=== PATIENT | male | born 1955 | race Two or more races ===

== ENCOUNTER 2017-06-16 19:52 | Emergency (ER) | payer OTHER ==
[~2017-06-16] VITALS: Ht 167.6 cm; Wt 79.4 kg
--- NOTE | 2017-06-16 20:05 | NUR ---
PT BIB AMBULANCE FOLLOWING FALL FROM WHEELCHAIR. PT C/O BACK PAIN AND FOREHEAD PAIN R/T FALL. NO TRAUMA OR BRUISING NOTED. PT IS A&O. DIAPER CHANGED AND PT POSITIONED FOR COMFORT. KINYARWANDA SPEAKING.
--- NOTE | 2017-06-16 20:11 | NUR ---
FELIZ ORTEGA AT BEDSIDE FOR MSE.
[2017-06-16] MEDS ORDERED: OXYCODONE/APAP 5-325 MG TABLET ONE (20:22)
--- NOTE | 2017-06-16 20:27 | NUR ---
Pt being taken out of room by food technology teacher for CT via gurney. VSS. No distress noted.
[2017-06-16] MEDS ORDERED: OXYCODONE/APAP 5-325 MG TABLET PO ONE (20:30)
--- NOTE | 2017-06-16 20:58 | NUR ---
PT back to ER from CT.
--- NOTE | 2017-06-16 21:03 | NUR ---
LAB AT PT BEDSIDE FOR BLOOD DRAW.
[2017-06-16 21:16] LABS: BASOPHILS % (AUTO) 0.4 % (0.0-2.0); EOSINOPHILS # (AUTO) 0.2 K/uL (0.0-0.7); EOSINOPHILS % (AUTO) 2.8 % (0.0-7.0); HEMOGLOBIN 11.9 g/dL (12.5-16.3); LYMPHOCYTES # (AUTO) 2.9 K/uL (20.0-40.0); LYMPHOCYTES % (AUTO) 42.4 % (20.5-51.5); MEAN CORPUSCULAR HEMOGLOBIN 33.3 uug (23.8-33.4); MEAN CORPUSCULAR HGB CONC 34 g/dL (32.5-36.3); MEAN CORPUSCULAR VOLUME 97.9 fL (73.0-96.2); MONOCYTES # (AUTO) 0.6 K/uL (2.0-10.0); MONOCYTES % (AUTO) 8.2 % (0.0-11.0); NEUTROPHILS # (AUTO) 3.2 K/uL (1.8-8.9); NEUTROPHILS % (AUTO) 46.2 % (38.5-71.5); PLATELET COUNT (AUTO) 133 K/uL (152-348); RED BLOOD CELL COUNT(AUTO) 3.57 MIL/uL (4.06-5.63); WHITE BLOOD COUNT (AUTO) 6.9 K/uL (3.6-10.2)
[2017-06-16 21:26] LABS: CARBON DIOXIDE 32 mmol/L (21-32); CHLORIDE 106 mmol/L (98-107); CREATININE 0.9 mg/dL (0.6-1.3); GLUCOSE 93 mg/dL (74-106); POTASSIUM 3.8 mmol/L (3.5-5.1); UREA NITROGEN, BLOOD 24 mg/dL (7-18)
[2017-06-16 21:32] LABS: ALANINE AMINOTRANSFERASE 18 U/L (16-63); ALKALINE PHOSPHATASE 72 U/L (50-136); ASPARTATE AMINOTRANSFERASE 12 U/L (15-37); BILIRUBIN,TOTAL 0.2 mg/dL (0.2-1.0); TOTAL PROTEIN, SERUM 7.5 g/dL (6.4-8.2); VALPROIC ACID 19 ug/mL (50-100)
--- NOTE | 2017-06-16 21:51 | NUR ---
PT RESTING IN A POSITION OF COMFORT. NO DISTRESS NOTED AT THIS TIME.
--- NOTE | 2017-06-16 22:48 | NUR ---
[facility] called regarding pt transfer. BLS requested. Confirmation # [id number] ETA [phone] [facility] called and updated on status.
--- NOTE | 2017-06-17 00:15 | NUR ---
Patient discharged to home in stable conditon via [facility] for transport. Written and verbal after care instructions given. Patient verbalizes understanding of instructions. Pt took all personal belongings.
[2017-06-17 00:17] VITALS: BP 102/68
== END 2017-06-17 00:20 | disposition home or self-care (01) ==
LOC: EDBD 19:52 → ER 19:52
DX: S00.03XA Contusion of scalp, initial encounter (principal); G89.29 Other chronic pain; M54.9 Dorsalgia, unspecified; E78.00 Pure hypercholesterolemia, unspecified; W05.0XXA Fall from non-moving wheelchair, initial encounter; Y93.89 Activity, other specified; Y92.89 Other specified places as the place of occurrence of the external cause; Y99.8 Other external cause status
CPT/HCPCS: 36415; 70030-TC; 70450; 72131; 80164; 85025; 85610; A4663

== ENCOUNTER 2017-08-01 12:04 | Emergency (ER) | payer OTHER ==
[~2017-08-01] VITALS: Ht 167.6 cm; Wt 77.1 kg
[2017-08-01] MEDS ORDERED: IBUP-1955 PO (12:31)
[2017-08-01] MEDS ORDERED: OXYC-162 PO (12:31)
[2017-08-01] MEDS ORDERED: ATOR10TA PO (12:31)
[2017-08-01] MEDS ORDERED: ACET325T80 PO (12:31)
[2017-08-01] MEDS ORDERED: RISP2TAB23 PO (12:31)
[2017-08-01] MEDS ORDERED: FOLI1TAB16 PO (12:31)
[2017-08-01] MEDS ORDERED: ASPI-605 PO (12:31)
[2017-08-01] MEDS ORDERED: DIVA125C5 PO (12:31)
[2017-08-01] MEDS ORDERED: DOCU250C14 PO (12:31)
[2017-08-01] MEDS ORDERED: TAMS0.4C34 PO (12:31)
[2017-08-01] MEDS ORDERED: BETH25TA PO (12:31)
--- NOTE | 2017-08-01 12:54 | NUR ---
DR CHURCHILL AT THE BEDSIDE FOR MSE.
--- NOTE | 2017-08-01 13:14 | NUR ---
Pt out of ER for CT.
[2017-08-01] MEDS ORDERED: IBUPROFEN 600 MG TABLET PO ONE (13:45)
--- NOTE | 2017-08-01 13:54 | NUR ---
NOTIFIED [facility] REGARDING PT GOING BACK TO FACILITY. CALLED [facility] FOR TX, ETA [phone]. PT IS RESTING IN BED WATCHING TV.
[2017-08-01] MEDS ORDERED: IBUPROFEN 600 MG TABLET ONE (14:12)
--- NOTE | 2017-08-01 15:48 | NUR ---
Patient discharged to SNF in stable conditon. Written and verbal after care instructions given to EMT [facility]. Patient verbalizes understanding of instructions.
--- NOTE | 2017-08-01 15:51 | NUR ---
Patient discharged in stable condition back to [facility] facility via [facility]. SBAR report given to transport EMT.
[2017-08-01 15:53] VITALS: BP 108/69
[2017-09-04] MEDS ORDERED: GABA-534 PO (08:39)
[2017-10-08] MEDS ORDERED: ACET325T80 PO (21:28)
[2017-10-08] MEDS ORDERED: OXYC-117 PO (21:28)
== END 2017-08-01 15:54 | disposition home or self-care (01) ==
LOC: ER 12:04
DX: R51 Headache (principal); E78.00 Pure hypercholesterolemia, unspecified; Z79.1 Long term (current) use of non-steroidal anti-inflammatories (NSAID); Z79.82 Long term (current) use of aspirin; Z79.899 Other long term (current) drug therapy
CPT/HCPCS: 70450; A4663

== ENCOUNTER 2017-08-29 09:49 | Emergency (ER) | payer OTHER ==
[~2017-08-29] VITALS: Ht 172.7 cm; Wt 74.8 kg
[~2017-08-29 09:49] MED LIST: ACET325T80 PO; ASPI-605 PO; ATOR10TA PO; BETH25TA PO; DIVA125C5 PO; DOCU250C14 PO; FOLI1TAB16 PO; IBUP-1955 PO; OXYC-162 PO; RISP2TAB23 PO; TAMS0.4C34 PO
--- NOTE | 2017-08-29 10:01 | NUR ---
patient was seen by dr garrido for fall and headache. patient is awake, alert and oriented.
[2017-08-29] MEDS ORDERED: ACETAMINOPHEN 325 MG TABLET PO ONE (10:30)
[2017-08-29] MEDS ORDERED: ACETAMINOPHEN ES 500 MG TABLET ONE (10:38)
--- NOTE | 2017-08-29 10:46 | NUR ---
called leilani snyder 30 minutes, trip number#[phone]
--- NOTE | 2017-08-29 11:10 | NUR ---
claudio at bedside to transfer the pt.
--- NOTE | 2017-08-29 11:17 | NUR ---
machelle baird at [facility] and gave report
--- NOTE | 2017-08-29 11:18 | NUR ---
Patient discharged to home in stable conditon. Written after care instructions and copy of ct scan given to claudio shah.
[2017-08-29 11:20] VITALS: BP 115/75
[2017-08-30] MEDS ORDERED: IBUP-1955 PO (12:40)
[2017-08-30] MEDS ORDERED: ACET325T80 PO (12:40)
[2017-08-30] MEDS ORDERED: HYDR-552 PO (12:40)
[2017-08-30] MEDS ORDERED: DOCU250C88 PO (12:40)
[2017-08-30 13:12] LABS: BASOPHILS # (AUTO) 0.1 K/uL (0.0-8.0); BASOPHILS % (AUTO) 0.6 % (0.0-2.0); EOSINOPHILS # (AUTO) 0.2 K/uL (0.0-0.7); EOSINOPHILS % (AUTO) 1.9 % (0.0-7.0); HEMATOCRIT 37.7 % (36.7-47.1); LYMPHOCYTES # (AUTO) 2.7 K/uL (20.0-40.0); LYMPHOCYTES % (AUTO) 32.8 % (20.5-51.5); MEAN CORPUSCULAR HEMOGLOBIN 32.9 uug (23.8-33.4); MEAN CORPUSCULAR HGB CONC 35 g/dL (32.5-36.3); MEAN CORPUSCULAR VOLUME 95.3 fL (73.0-96.2); MONOCYTES # (AUTO) 0.7 K/uL (2.0-10.0); MONOCYTES % (AUTO) 8.5 % (0.0-11.0); NEUTROPHILS # (AUTO) 4.6 K/uL (1.8-8.9); NEUTROPHILS % (AUTO) 56.2 % (38.5-71.5); PLATELET COUNT (AUTO) 186 K/uL (152-348); RED BLOOD CELL COUNT(AUTO) 3.96 MIL/uL (4.06-5.63); WHITE BLOOD COUNT (AUTO) 8.2 K/uL (3.6-10.2)
[2017-08-30 13:31] LABS: CREATININE 0.9 mg/dL (0.6-1.3); POTASSIUM 4.4 mmol/L (3.5-5.1)
[2017-08-30 13:37] LABS: BILIRUBIN,TOTAL 0.4 mg/dL (0.2-1.0); TOTAL PROTEIN, SERUM 8.4 g/dL (6.4-8.2)
[2017-08-30 20:49] LABS: *BILIRUBIN,URIN NEGATIVE (NEGATIVE); *BLOOD, URINE NEGATIVE (NEGATIVE); *CLARITY,URINE CLOUDY (CLEAR); *KETONES,URINE TRACE (NEGATIVE); *PROTEIN,URINE TRACE (NEGATIVE); *UROBILINOGEN,URINE 0.2 E.U./dl (NORMAL); LEUKOCYTE ESTERASE ,URINE 2+ (NEGATIVE); NITRITE, URINE POSITIVE (NEGATIVE); UGLUCOSE NEGATIVE (NEGATIVE)
[2017-08-30 21:10] LABS: *COLOR,URINE YELLOW (YELLOW); BACTERIA,URINE MANY /HPF (NONE SEEN); SQUAMOUS EPITHELIAL CELL,UR FEW /HPF (NONE SEEN); WBC,URINE 50-80 /HPF (0-3)
[2017-09-04] MEDS ORDERED: GABA-534 PO (08:39)
[2017-10-08] MEDS ORDERED: ACET325T80 PO (21:28)
[2017-10-08] MEDS ORDERED: OXYC-117 PO (21:28)
== END 2017-08-29 11:21 | disposition home or self-care (01) ==
LOC: ER 09:49
DX: S06.0X0A Concussion without loss of consciousness, initial encounter (principal); E78.00 Pure hypercholesterolemia, unspecified; G89.29 Other chronic pain; M54.9 Dorsalgia, unspecified; Z79.82 Long term (current) use of aspirin; Z79.891 Long term (current) use of opiate analgesic; Z79.1 Long term (current) use of non-steroidal anti-inflammatories (NSAID); Z79.899 Other long term (current) drug therapy; W18.30XA Fall on same level, unspecified, initial encounter; Y93.89 Activity, other specified; Y92.89 Other specified places as the place of occurrence of the external cause; Y99.8 Other external cause status
CPT/HCPCS: 36415; 70030-TC; 70450; 85025; 93005; A4663; A9150

== ENCOUNTER 2017-08-30 12:27 | Inpatient (IN) | payer OTHER ==
[~2017-08-30] VITALS: Ht 162.6 cm; Wt 66.7 kg
[~2017-08-30 12:27] MED LIST changes: -ACET325T80 PO; -DOCU250C14 PO; -IBUP-1955 PO; -OXYC-162 PO
[2017-08-30] MEDS ORDERED: IBUP-1955 PO (12:40)
[2017-08-30] MEDS ORDERED: ACET325T80 PO (12:40)
[2017-08-30] MEDS ORDERED: HYDR-552 PO (12:40)
[2017-08-30] MEDS ORDERED: DOCU250C88 PO (12:40)
--- NOTE | 2017-08-30 12:50 | NUR ---
DR Pierson at the bedside for MSE.
--- NOTE | 2017-08-30 13:30 | NUR ---
Pt out of ER for CT.
--- NOTE | 2017-08-30 14:07 | NUR ---
Paged [facility] for admitting pt.
--- NOTE | 2017-08-30 14:29 | NUR ---
MRSA collected and sent to LAB, belonging list completed.
--- NOTE | 2017-08-30 14:35 | NUR ---
Paged admitting MD for 2nd time, awaiting call back.
--- NOTE | 2017-08-30 15:20 | NUR ---
No called recieved from admitting MD. Called exchange for 3rd time. Awaiting call back.
--- NOTE | 2017-08-30 15:45 | NUR ---
Received patient from ER. Patient is alert, in no distress. Patient has a small open laceration on left forehead, dressing intact. Patient is admitted to tele under the care of Dr. Hess. Dx: Frequent falls. Belonging list done, admission process and care plan initiated. Safety measures in place, bed alarm on. Will continue to monitor. Will call MD for new admission orders.
--- NOTE | 2017-08-30 15:50 | NUR ---
Admit pt to TELE, Dr Hess called back.
[2017-08-30 16:09] VITALS: BP 99/53
--- NOTE | 2017-08-30 16:30 | NUR ---
Called MD for new admission orders.
--- NOTE | 2017-08-30 18:30 | NUR ---
follow up call to MD for new admission orders.
--- NOTE | 2017-08-30 19:10 | NUR ---
RECEIVED PT AWAKE ON BED. PT SHOWS NO SIGNS OF DISTRESS. PT IV INTACT AND PATENT.PT AWARE THAT I NEED A SPUTUM SAMPLE FROM HIM. INSTRUCTED THE PT HOW TO COLLECT THE SPUTUM. PT SHOWS UNDERSTANDING. CALL LIGHT WITHIN REACH, BED ALARM ON AND IN LOW POSITION, SIDE RAILSX2.WILL CONTINUE TO MONITOR.
--- NOTE | 2017-08-30 19:10 | NUR ---
Received call from MD regarding new admission orders.
[2017-08-30] MEDS ORDERED: ZOLPIDEM 5 MG TABLET PO PRN (19:15)
[2017-08-30] MEDS ORDERED: MAGNESIUM HYDROXIDE 30 ML LIQUID UDC PO PRN (19:15)
[2017-08-30] MEDS ORDERED: ONDANSETRON 4 MG/2 ML VIAL IV PRN (19:15)
[2017-08-30 20:04] LABS: BASOPHILS % (AUTO) 0.4 % (0.0-2.0); EOSINOPHILS % (AUTO) 1.6 % (0.0-7.0); HEMATOCRIT 36.9 % (36.7-47.1); HEMOGLOBIN 12.6 g/dL (12.5-16.3); LYMPHOCYTES % (AUTO) 36.8 % (20.5-51.5); MEAN CORPUSCULAR HEMOGLOBIN 32.7 uug (23.8-33.4); MEAN CORPUSCULAR HGB CONC 34 g/dL (32.5-36.3); MEAN CORPUSCULAR VOLUME 95.4 fL (73.0-96.2); MONOCYTES % (AUTO) 8.4 % (0.0-11.0); NEUTROPHILS % (AUTO) 52.8 % (38.5-71.5); PLATELET COUNT (AUTO) 141 K/uL (152-348); RED BLOOD CELL COUNT(AUTO) 3.87 MIL/uL (4.06-5.63); WHITE BLOOD COUNT (AUTO) 7.6 K/uL (3.6-10.2)
[2017-08-30 20:05] LABS: EOSINOPHILS # (AUTO) 0.1 K/uL (0.0-0.7); LYMPHOCYTES # (AUTO) 2.8 K/uL (20.0-40.0); MONOCYTES # (AUTO) 0.6 K/uL (2.0-10.0)
[2017-08-30 20:11] LABS: BILIRUBIN,TOTAL 0.3 mg/dL (0.2-1.0); CREATININE 0.9 mg/dL (0.6-1.3); MAGNESIUM 1.8 mg/dL (1.8-2.4); PHOSPHOROUS 3.2 mg/dL (2.5-4.9); POTASSIUM 3.6 mmol/L (3.5-5.1); TOTAL PROTEIN, SERUM 7.6 g/dL (6.4-8.2)
[2017-08-30] MEDS: BETHANECHOL CHLORIDE 25 MG TABLET PO SCH (20:15)
[2017-08-30] MEDS: ATORVASTATIN 10 MG TABLET PO SCH (20:15)
[2017-08-30 20:24] VITALS: BP 112/68
[2017-08-31] VITALS (7 sets, daily range): BP systolic 91–121; BP diastolic 51–75
[2017-08-31 05:57] LABS: BASOPHILS % (AUTO) 0.3 % (0.0-2.0); EOSINOPHILS # (AUTO) 0.1 K/uL (0.0-0.7); EOSINOPHILS % (AUTO) 1.1 % (0.0-7.0); HEMATOCRIT 37.5 % (36.7-47.1); HEMOGLOBIN 12.8 g/dL (12.5-16.3); LYMPHOCYTES # (AUTO) 2.6 K/uL (20.0-40.0); LYMPHOCYTES % (AUTO) 22.1 % (20.5-51.5); MEAN CORPUSCULAR HEMOGLOBIN 32.3 uug (23.8-33.4); MEAN CORPUSCULAR HGB CONC 34 g/dL (32.5-36.3); MEAN CORPUSCULAR VOLUME 94.9 fL (73.0-96.2); MONOCYTES # (AUTO) 0.9 K/uL (2.0-10.0); MONOCYTES % (AUTO) 7.7 % (0.0-11.0); NEUTROPHILS % (AUTO) 68.8 % (38.5-71.5); PLATELET COUNT (AUTO) 145 K/uL (152-348); RED BLOOD CELL COUNT(AUTO) 3.96 MIL/uL (4.06-5.63); WHITE BLOOD COUNT (AUTO) 11.7 K/uL (3.6-10.2)
[2017-08-31 06:26] LABS: CREATININE 0.7 mg/dL (0.6-1.3); MAGNESIUM 1.8 mg/dL (1.8-2.4); PHOSPHOROUS 3.3 mg/dL (2.5-4.9); POTASSIUM 3.4 mmol/L (3.5-5.1)
[2017-08-31 06:33] LABS: THYROID STIMULATING HORMONE 1.297 mIU/mL (0.358-3.740)
--- NOTE | 2017-08-31 06:58 | NUR ---
PT SLEPT INTERMITTENTLY DURING THE SHIFT.PT SHOWS NO SIGNS OF DISTRESS. PT IV INTACT AND PATENT.PRESCRIBED MEDICATION GIVEN AND PT TOLERATED IT WELL. SPUTUM WAS NOT COLLECTED BECAUSE PT CAN'T COUGH OUT HIS SPUTUM. NOTIFY THE CHARGE NURSE ABOUT THE SITUATION. I WILL ENDORSE TO DAYSHIFT NURSE ABOUT IT. CALL LIGHT WITHIN REACH, BED ALARM ON AND IN LOW POSITION, SIDE RAILSX2. SAFETY AND COMFORT PROVIDED. ALL NEEDS ARE MET. WILL ENDORSE TO DAYSHIFT NURSE.
--- NOTE | 2017-08-31 07:59 | NUR ---
RECEIVED SHIFT REPORT FROM NEW ORDER CLERK NURSE. PATIENT HAVING BREAKFAST AT THIS TIME. NO SIGNS OF DISTRESS. STABLE. RESPIRATORY SPUTUM CULTURE PENDING. A/OX3. FALL RISK - FALL PRECAUTION IMPLEMENTED. BED IN LOCKED/LOW POSITION, SIDE RAILS UP X2, BED ALARM ON, CALL LIGHT WITHIN REACH OF PATIENT.
[2017-08-31] MEDS: DIVALPROEX SPRINKLE 125 MG CAP.SPRINK PO SCH ×4 (08:37→17:00)
[2017-08-31] MEDS: TAMSULOSIN HCL 0.4 MG CAP.SR.24H PO SCH ×3 (08:38→17:00)
[2017-08-31] MEDS: DOCUSATE SODIUM 250 MG CAPSULE PO SCH (08:38)
[2017-08-31] MEDS: ASPIRIN EC 81 MG TABLET.DR PO SCH (08:38)
[2017-08-31] MEDS: risperiDONE 2 MG TABLET PO SCH ×3 (08:38→17:00)
[2017-08-31] MEDS: BETHANECHOL CHLORIDE 25 MG TABLET PO SCH ×5 (08:38→22:34)
[2017-08-31] MEDS: FOLIC ACID 1 MG TABLET PO SCH (08:38)
--- NOTE | 2017-08-31 09:22 | NUR ---
PT SPOKE WITH MD. WILL BE DISCHARGED AND FOLLOW UP WITH PATIENT'S PRIMARY MD OUTPATIENT FOR PULMONARY FUNCTION TEST BECAUSE PFT IS NOT PROVIDED HERE AT [facility]. Addendum: 08/31/17 at 1740 by DEBRA AMBRIZ RN INCORRECT PATIENT.
[2017-08-31] MEDS: CEFTRIAXONE 1 G in IV DEXTROSE 5% 50 ML IV SCH (11:13)
[2017-08-31] MEDS: GABAPENTIN 300 MG CAPSULE PO SCH ×3 (13:29→17:00)
[2017-08-31] MEDS: POTASSIUM CHLORIDE 20 MEQ TAB.PRT.SR PO ONE ×2 (16:20→23:17)
--- NOTE | 2017-08-31 16:50 | NUR ---
PATIENT HAS BEEN VERY DROWSY AND SEDATED SECOND HALF OF SHIFT. ROUTINE MEDICATIONS GIVEN. NO PRN MEDICATIONS PROVIDED. PATIENT VERY SLEEPY AND DIFFICULT TO WAKE UP. WILL TRY TO WAKE PATIENT UP AND REORIENT NEEDED.
--- NOTE | 2017-08-31 17:44 | NUR ---
NON- ADMINISTRATION MEDICATIONS: ALL 1700 MEDICATIONS + KDUR. PATIENT HAS BEEN VERY DROWSY, SEDATED, DIFFICULT TO WAKE UP. ASPIRATION PRECAUTION. VITAL SIGNS STABLE FOR PATIENT. TELE - SINUS RHYTHM. WILL CONTINUE TO MONITOR AND REORIENT NEEDED.
--- NOTE | 2017-08-31 17:56 | NUR ---
NON-ADMINISTRATION MEDICATIONS AT 1700 - CAPSULES/TABLETS WERE TAKEN OUT OF PACKAGING, PT. PRESENTED WITH HIGH RISKS FOR ASPIRATION. DID NOT ADMINISTER AND DISPOSED OF MEDICATIONS SAFELY: URECHOLINE 25 MG K-DUR 20 MEQ DEPAKOTE SPRINKLE 250 MG FLOMAX 0.4 MG NEURONTIN 30 MG RISPERDAL 2 MG
[2017-08-31] MEDS: ATORVASTATIN 10 MG TABLET PO SCH (22:34)
[2017-08-31] MEDS ORDERED: POTASSIUM CHLORIDE 20 MEQ TAB.PRT.SR ONE (23:14)
--- NOTE | 2017-08-31 23:21 | NUR ---
ADMINISTERED KDUR LATE DUE TO PT WAS VERY SLEEPY, PREVIOUS NURSE UNABLE TO GIVE MED DUE TO SAME REASON.
[2017-09-01] VITALS: BP 92/49
[2017-09-01] MEDS: ACETAMINOPHEN 325 MG TABLET PO PRN ×4 (00:27→22:12)
[2017-09-01 04:00] VITALS: BP 95/58
[2017-09-01 07:09] LABS: BILIRUBIN,TOTAL 0.5 mg/dL (0.2-1.0); MAGNESIUM 1.8 mg/dL (1.8-2.4); POTASSIUM 3.3 mmol/L (3.5-5.1); TOTAL PROTEIN, SERUM 7.4 g/dL (6.4-8.2)
[2017-09-01 07:19] LABS: BASOPHILS # (AUTO) 0.1 K/uL (0.0-8.0); BASOPHILS % (AUTO) 0.2 % (0.0-2.0); EOSINOPHILS # (AUTO) 0.1 K/uL (0.0-0.7); EOSINOPHILS % (AUTO) 0.3 % (0.0-7.0); HEMATOCRIT 34.8 % (36.7-47.1); HEMOGLOBIN 11.9 g/dL (12.5-16.3); LYMPHOCYTES # (AUTO) 3.3 K/uL (20.0-40.0); LYMPHOCYTES % (AUTO) 15.6 % (20.5-51.5); MEAN CORPUSCULAR HEMOGLOBIN 32.6 uug (23.8-33.4); MEAN CORPUSCULAR HGB CONC 34 g/dL (32.5-36.3); MEAN CORPUSCULAR VOLUME 95.5 fL (73.0-96.2); MONOCYTES # (AUTO) 2.1 K/uL (2.0-10.0); NEUTROPHILS # (AUTO) 15.7 K/uL (1.8-8.9); NEUTROPHILS % (AUTO) 73.9 % (38.5-71.5); PLATELET COUNT (AUTO) 118 K/uL (152-348); RED BLOOD CELL COUNT(AUTO) 3.65 MIL/uL (4.06-5.63)
[2017-09-01 07:37] LABS: WHITE BLOOD COUNT (AUTO) 21.3 K/uL (3.6-10.2)
--- NOTE | 2017-09-01 08:00 | NUR ---
AWAKE COOPERATE WELL SPEAK RWANDAN NO SOB OR PAIN ON FALL /ASPIRATION PRECAUTION BED ALARM ON AND CALL LIGHT IN REACH
[2017-09-01] MEDS: BETHANECHOL CHLORIDE 25 MG TABLET PO SCH ×4 (08:25→20:08)
[2017-09-01] MEDS: Z GUARD REMEDY PASTE 57 GM TUBE TOP PRN (08:25)
[2017-09-01] MEDS: ASPIRIN EC 81 MG TABLET.DR PO SCH (08:25)
[2017-09-01] MEDS: DOCUSATE SODIUM 250 MG CAPSULE PO SCH (08:25)
[2017-09-01] MEDS: DIVALPROEX SPRINKLE 125 MG CAP.SPRINK PO SCH ×3 (08:25→16:58)
[2017-09-01] MEDS: FOLIC ACID 1 MG TABLET PO SCH (08:25)
[2017-09-01] MEDS: risperiDONE 2 MG TABLET PO SCH ×2 (08:26→16:58)
[2017-09-01] MEDS: TAMSULOSIN HCL 0.4 MG CAP.SR.24H PO SCH ×2 (08:26→17:06)
[2017-09-01] MEDS: GABAPENTIN 300 MG CAPSULE PO SCH ×3 (08:26→16:58)
[2017-09-01] MEDS: CEFTRIAXONE 1 G in IV DEXTROSE 5% 50 ML IV SCH (09:40)
[2017-09-01 10:48] LABS: LYMPHOCYTES % (MANUAL) 18 % (20-40); MONOCYTES % (MANUAL) 10 % (2-10); NEUTROPHILS % (MANUAL) 72 % (42-75)
[2017-09-01] MEDS ORDERED: POTASSIUM CHLORIDE 20 MEQ TAB.PRT.SR PO ONE (11:15)
[2017-09-01 11:45] VITALS: BP 96/56
--- NOTE | 2017-09-01 13:00 | NUR ---
EAT LUNCH WELL NO PAIN WOUNG CARE CLEAN AND APPLY STERI STRIP IN TACT
--- NOTE | 2017-09-01 15:00 | NUR ---
C/O OF LT EYE SKIN ABRASION PAIN TYLENOL PRN GIVEN AND PO FLD ENC KAYA WELL
[2017-09-01 15:42] VITALS: BP 96/50
--- NOTE | 2017-09-01 16:00 | NUR ---
PAIN RELIEF RESTING AND WATCHING TV WELL
--- NOTE | 2017-09-01 17:30 | NUR ---
HEMODYNAMIC STATUS STABLE TELE WAS SR NO PVC PAIN UNDER CONTROL SAFETY MEASURE PROVIDED BED ALARM ON AND CALL LIGHT WITHIN REACH
[2017-09-01] MEDS: ATORVASTATIN 10 MG TABLET PO SCH (20:08)
[2017-09-01 20:24] VITALS: BP 102/58
[2017-09-02 04:00] VITALS: BP 100/60
[2017-09-02 06:18] LABS: CREATININE 0.8 mg/dL (0.6-1.3); POTASSIUM 3.8 mmol/L (3.5-5.1)
--- NOTE | 2017-09-02 08:00 | NUR ---
AWAKE COOPERATE NO SOB OR PAIN EAT BREAKFAST WELL ON ASPIRATION AND FALL PRECAUTION BED ALARM ON AND CALL LIGHT IN REACH
[2017-09-02] MEDS: FOLIC ACID 1 MG TABLET PO SCH (08:13)
[2017-09-02] MEDS: DIVALPROEX SPRINKLE 125 MG CAP.SPRINK PO SCH ×3 (08:14→16:40)
[2017-09-02] MEDS: GABAPENTIN 300 MG CAPSULE PO SCH ×3 (08:14→16:40)
[2017-09-02] MEDS: TAMSULOSIN HCL 0.4 MG CAP.SR.24H PO SCH ×2 (08:14→16:40)
[2017-09-02] MEDS: DOCUSATE SODIUM 250 MG CAPSULE PO SCH (08:14)
[2017-09-02] MEDS: risperiDONE 2 MG TABLET PO SCH ×2 (08:14→16:40)
[2017-09-02] MEDS: ASPIRIN EC 81 MG TABLET.DR PO SCH (08:14)
[2017-09-02] MEDS: BETHANECHOL CHLORIDE 25 MG TABLET PO SCH ×4 (08:14→20:33)
[2017-09-02] MEDS: Z GUARD REMEDY PASTE 57 GM TUBE TOP PRN (08:15)
[2017-09-02] MEDS: ACETAMINOPHEN 325 MG TABLET PO PRN (08:15)
[2017-09-02] MEDS: CEFTRIAXONE 1 G in IV DEXTROSE 5% 50 ML IV SCH (09:29)
--- NOTE | 2017-09-02 10:00 | NUR ---
DR MENDOZA SEEN PATIENT AND LAB RESULTAND ORDER IN CHART LAB IN AM
[2017-09-02 11:57] VITALS: BP 107/66
[2017-09-02 15:40] VITALS: BP 103/64
--- NOTE | 2017-09-02 17:30 | NUR ---
STABLE HEMODYNAMIC STATUS ,NO SOB OR PAIN ,REPOSITION Q2 HR WHILE IN BED SAFETY MEASURE PROVIDED BED ALARM ON AND CALL LIGHT IN REACH
--- NOTE | 2017-09-02 19:30 | NUR ---
Received patient laying comfortably in bed. HOB elevated. No acute distress noted. A/O x 3 forgetful and mainly Divehi speaking. Abrasion on the left temporal region. Covered with a band aid. Clean and dry. No c/o pain or sob. Noted right arm prosthesis. Left hand, noted IV # 20 HL. Ambulatory with assistance. TELE Sinus Rhythm. Safety initiated. Call light within reach. Will continue to monitor.
[2017-09-02 20:00] VITALS: BP 113/70
[2017-09-02] MEDS: CEPHALEXIN MONOHYDRATE 500 MG CAPSULE PO SCH (20:33)
[2017-09-02] MEDS: ATORVASTATIN 10 MG TABLET PO SCH (20:33)
[2017-09-03] VITALS: BP 101/64
[2017-09-03 04:00] VITALS: BP 113/68
--- NOTE | 2017-09-03 05:36 | NUR ---
Patient slept intermittently t/o shift. TELE sinus rhythm. No c/o pain or SOB. Vital signs stable. Urinated well t/o shift. 1 BM. Asked for nourishment t/o shift. Safety and comfort measures maintained t/o shift. Room was kept clutter free. All meds given as ordered. All needs met.
[2017-09-03 06:41] LABS: CREATININE 0.7 mg/dL (0.6-1.3); MAGNESIUM 1.7 mg/dL (1.8-2.4); PHOSPHOROUS 3.7 mg/dL (2.5-4.9); POTASSIUM 3.9 mmol/L (3.5-5.1)
[2017-09-03 06:44] LABS: BASOPHILS % (AUTO) 0.4 % (0.0-2.0); EOSINOPHILS # (AUTO) 0.4 K/uL (0.0-0.7); EOSINOPHILS % (AUTO) 4.5 % (0.0-7.0); HEMATOCRIT 32.9 % (36.7-47.1); HEMOGLOBIN 11.4 g/dL (12.5-16.3); LYMPHOCYTES # (AUTO) 1.8 K/uL (20.0-40.0); LYMPHOCYTES % (AUTO) 22.7 % (20.5-51.5); MEAN CORPUSCULAR HEMOGLOBIN 33.1 uug (23.8-33.4); MEAN CORPUSCULAR HGB CONC 35 g/dL (32.5-36.3); MEAN CORPUSCULAR VOLUME 95.9 fL (73.0-96.2); MONOCYTES # (AUTO) 0.6 K/uL (2.0-10.0); MONOCYTES % (AUTO) 7.6 % (0.0-11.0); NEUTROPHILS # (AUTO) 5.1 K/uL (1.8-8.9); NEUTROPHILS % (AUTO) 64.8 % (38.5-71.5); PLATELET COUNT (AUTO) 125 K/uL (152-348); RED BLOOD CELL COUNT(AUTO) 3.43 MIL/uL (4.06-5.63); WHITE BLOOD COUNT (AUTO) 7.9 K/uL (3.6-10.2)
--- NOTE | 2017-09-03 07:30 | NUR ---
Received pt awake, alert and oriented times two, Citizen Of [place] speaking, states no pain, no immediate s/s of SOB, distress or discomfort. bed at lowest position foe safety and call light within reach for assistance. Pt is on RA and no IV hydration running at this time Addendum: 09/03/17 at 1832 by BETHANY HAN RN *for
[2017-09-03] MEDS: CEPHALEXIN MONOHYDRATE 500 MG CAPSULE PO SCH ×2 (08:56→20:21)
[2017-09-03] MEDS: FOLIC ACID 1 MG TABLET PO SCH (08:56)
[2017-09-03] MEDS: DIVALPROEX SPRINKLE 125 MG CAP.SPRINK PO SCH ×3 (08:56→16:11)
[2017-09-03] MEDS: risperiDONE 2 MG TABLET PO SCH ×2 (08:56→16:11)
[2017-09-03] MEDS: ASPIRIN EC 81 MG TABLET.DR PO SCH (08:56)
[2017-09-03] MEDS: DOCUSATE SODIUM 250 MG CAPSULE PO SCH (08:57)
[2017-09-03] MEDS: BETHANECHOL CHLORIDE 25 MG TABLET PO SCH ×4 (08:57→20:21)
[2017-09-03] MEDS: TAMSULOSIN HCL 0.4 MG CAP.SR.24H PO SCH ×2 (08:57→16:10)
[2017-09-03] MEDS: GABAPENTIN 300 MG CAPSULE PO SCH ×3 (08:57→16:10)
--- NOTE | 2017-09-03 09:00 | NUR ---
Pt was evaluated by physical therapy
[2017-09-03 11:51] VITALS: BP 92/59
[2017-09-03] MEDS ORDERED: MAGNESIUM OXIDE 400 MG TABLET PO ONE (12:00)
--- NOTE | 2017-09-03 12:15 | NUR ---
Urine collected and sent down to lab
[2017-09-03 15:40] VITALS: BP 108/64
--- NOTE | 2017-09-03 18:18 | NUR ---
Pt has been complaint with medications and nursing care. Pt is Malian speaking and states he has had no pain at all or has not complaint of having pain during the hospital. Pt shows no s/s of pain, distress, discomfort or SOB. Safety precautions in place. Addendum: 09/03/17 at 1832 by BETHANY HAN RN *compliant
--- NOTE | 2017-09-03 19:30 | NUR ---
Received patient laying comfortably in bed. No acute distress noted. No c/o pain or SOB. On RA. A/O x 3 forgetful and mainly Romansh speaking. Abrasion on the left temporal region. Covered with a band aid. Clean and dry. No c/o pain or sob. Noted right arm prosthesis. Left hand, noted IV # 20 HL. Ambulatory with assistance. TELE Sinus Rhythm. Safety initiated. Call light within reach. Will continue to monitor.
[2017-09-03] MEDS: ATORVASTATIN 10 MG TABLET PO SCH (20:21)
[2017-09-03] MEDS: ACETAMINOPHEN 325 MG TABLET PO PRN (20:43)
--- NOTE | 2017-09-03 20:45 | NUR ---
C/o headache 10/07. Tylenol given. Will closely monitor.
[2017-09-03 20:48] VITALS: BP 101/59
[2017-09-04 04:20] VITALS: BP 94/61
--- NOTE | 2017-09-04 05:35 | NUR ---
Patient slept intermittently t/o shift. No c/o pain or SOB. Vital signs stable. Urinated well t/o shift. BM x 2. Safety and comfort measures maintained t/o shift. Right arm prothesis in bed with patient. Patient ambulates with assistance. Unsteady gait. Room was kept clutter free. Bed alarm on. All meds given as ordered. Takes pills whole. All needs met.
[2017-09-04 06:56] LABS: BILIRUBIN,TOTAL 0.1 mg/dL (0.2-1.0); CREATININE 0.7 mg/dL (0.6-1.3); PHOSPHOROUS 3.3 mg/dL (2.5-4.9); POTASSIUM 3.9 mmol/L (3.5-5.1); TOTAL PROTEIN, SERUM 7.7 g/dL (6.4-8.2)
[2017-09-04 07:00] LABS: BASOPHILS % (AUTO) 0.4 % (0.0-2.0); EOSINOPHILS # (AUTO) 0.4 K/uL (0.0-0.7); EOSINOPHILS % (AUTO) 7.9 % (0.0-7.0); HEMATOCRIT 34.7 % (36.7-47.1); HEMOGLOBIN 11.7 g/dL (12.5-16.3); LYMPHOCYTES % (AUTO) 34.8 % (20.5-51.5); MEAN CORPUSCULAR HEMOGLOBIN 32.5 uug (23.8-33.4); MEAN CORPUSCULAR HGB CONC 34 g/dL (32.5-36.3); MEAN CORPUSCULAR VOLUME 96.2 fL (73.0-96.2); MONOCYTES # (AUTO) 0.4 K/uL (2.0-10.0); MONOCYTES % (AUTO) 6.7 % (0.0-11.0); NEUTROPHILS # (AUTO) 2.8 K/uL (1.8-8.9); NEUTROPHILS % (AUTO) 50.2 % (38.5-71.5); PLATELET COUNT (AUTO) 152 K/uL (152-348); RED BLOOD CELL COUNT(AUTO) 3.61 MIL/uL (4.06-5.63)
[2017-09-04 07:34] LABS: WHITE BLOOD COUNT (AUTO) 5.6 K/uL (3.6-10.2)
--- NOTE | 2017-09-04 08:13 | NUR ---
ALEXANDREA MED FROM 08/31/17
[2017-09-04] MEDS: DIVALPROEX SPRINKLE 125 MG CAP.SPRINK PO SCH ×2 (08:15→12:08)
[2017-09-04] MEDS: risperiDONE 2 MG TABLET PO SCH (08:15)
[2017-09-04] MEDS: GABAPENTIN 300 MG CAPSULE PO SCH ×2 (08:16→12:08)
[2017-09-04] MEDS: BETHANECHOL CHLORIDE 25 MG TABLET PO SCH ×2 (08:16→12:08)
[2017-09-04] MEDS: CEPHALEXIN MONOHYDRATE 500 MG CAPSULE PO SCH (08:16)
[2017-09-04] MEDS: DOCUSATE SODIUM 250 MG CAPSULE PO SCH (08:16)
[2017-09-04] MEDS: TAMSULOSIN HCL 0.4 MG CAP.SR.24H PO SCH (08:16)
[2017-09-04] MEDS: FOLIC ACID 1 MG TABLET PO SCH (08:16)
[2017-09-04] MEDS: ASPIRIN EC 81 MG TABLET.DR PO SCH (08:16)
[2017-09-04] MEDS ORDERED: GABA-534 PO (08:39)
[2017-09-04 11:10] VITALS: BP 117/67
--- NOTE | 2017-09-04 13:35 | NUR ---
Patient discharged to [facility]. Discharge instructions/teachings provided, patient needs reinforcement. Photo taken and placed in patient's chart. IV access and ID band removed. Awaiting for transportation.
--- NOTE | 2017-09-04 14:15 | NUR ---
Patient left unit, accompanied by 2 staff from [facility]. Patient is alert, in no distress. Addendum: 09/04/17 at 1420 by YOANNA PAUL RN via wheelchair
[2017-10-08] MEDS ORDERED: ACET325T80 PO (21:28)
[2017-10-08] MEDS ORDERED: OXYC-117 PO (21:28)
== END 2017-09-04 14:15 | DRG 720 ==
LOC: ER 12:27 → TELE 14:10 → MED 09-03 22:57
PROVIDERS: ADMIT Internal Medicine; ATTEND Internal Medicine
DX: A41.9 Sepsis, unspecified organism (principal); M48.02 Spinal stenosis, cervical region; N39.0 Urinary tract infection, site not specified; S01.112A Laceration without foreign body of left eyelid and periocular area, initial encounter; W18.30XA Fall on same level, unspecified, initial encounter; Y92.098 Other place in other non-institutional residence as the place of occurrence of the external cause; E78.5 Hyperlipidemia, unspecified; Z89.211 Acquired absence of right upper limb below elbow; N40.0 Benign prostatic hyperplasia without lower urinary tract symptoms; G89.29 Other chronic pain; R26.89 Other abnormalities of gait and mobility; Z86.73 Personal history of transient ischemic attack (TIA), and cerebral infarction without residual deficits; Z79.82 Long term (current) use of aspirin; Z79.899 Other long term (current) drug therapy; R29.6 Repeated falls; E78.00 Pure hypercholesterolemia, unspecified
CPT/HCPCS: 36415; 70450; 71045; 72125; 82746; 83735; 84100; 84443; 85025; 86592; 87040; 87077; 87086; 93005; 93307; 93880; 97116; 97530; A4217; A4663; J0696; J7040; J7060

== ENCOUNTER 2017-09-15 22:08 | Emergency (ER) | payer OTHER ==
[~2017-09-15] VITALS: Ht 165.1 cm; Wt 70.3 kg
[~2017-09-15 22:08] MED LIST changes: +ACET325T80 PO; +DOCU250C88 PO; +GABA-534 PO; +HYDR-552 PO
[2017-09-15 22:43] LABS: BASOPHILS % (AUTO) 0.5 % (0.0-2.0); EOSINOPHILS # (AUTO) 0.2 K/uL (0.0-0.7); EOSINOPHILS % (AUTO) 2.3 % (0.0-7.0); HEMATOCRIT 34.9 % (36.7-47.1); HEMOGLOBIN 11.8 g/dL (12.5-16.3); LYMPHOCYTES % (AUTO) 33.8 % (20.5-51.5); MEAN CORPUSCULAR HEMOGLOBIN 32.8 uug (23.8-33.4); MEAN CORPUSCULAR HGB CONC 34 g/dL (32.5-36.3); MEAN CORPUSCULAR VOLUME 96.7 fL (73.0-96.2); MONOCYTES # (AUTO) 0.5 K/uL (2.0-10.0); MONOCYTES % (AUTO) 5.9 % (0.0-11.0); NEUTROPHILS # (AUTO) 5.1 K/uL (1.8-8.9); NEUTROPHILS % (AUTO) 57.5 % (38.5-71.5); PLATELET COUNT (AUTO) 190 K/uL (152-348); RED BLOOD CELL COUNT(AUTO) 3.61 MIL/uL (4.06-5.63); WHITE BLOOD COUNT (AUTO) 8.8 K/uL (3.6-10.2)
[2017-09-15 22:47] LABS: *BILIRUBIN,URIN NEGATIVE (NEGATIVE); *BLOOD, URINE NEGATIVE (NEGATIVE); *CLARITY,URINE CLEAR (CLEAR); *COLOR,URINE YELLOW (YELLOW); *KETONES,URINE 1+ (NEGATIVE); *PROTEIN,URINE NEGATIVE (NEGATIVE); *UROBILINOGEN,URINE 0.2 E.U./dl (NORMAL); LEUKOCYTE ESTERASE ,URINE NEGATIVE (NEGATIVE); NITRITE, URINE NEGATIVE (NEGATIVE); UGLUCOSE NEGATIVE (NEGATIVE)
[2017-09-15 23:02] LABS: BACTERIA,URINE NONE SEEN /HPF (NONE SEEN); RBC,URINE 0-3 /HPF (0-3); SQUAMOUS EPITHELIAL CELL,UR FEW /HPF (NONE SEEN)
[2017-09-15 23:03] LABS: MUCUS,URINE MODERATE /LPF (0-FEW)
[2017-09-15 23:04] LABS: ACETAMINOPHEN < 2.0 ug/mL (10-30); ALANINE AMINOTRANSFERASE 16 U/L (16-63); ALKALINE PHOSPHATASE 66 U/L (50-136); ASPARTATE AMINOTRANSFERASE 13 U/L (15-37); BILIRUBIN,DIRECT 0.1 mg/dL (0.0-0.2); BILIRUBIN,TOTAL 0.3 mg/dL (0.2-1.0); CARBON DIOXIDE 29 mmol/L (21-32); CHLORIDE 107 mmol/L (98-107); CREATININE 0.9 mg/dL (0.6-1.3); GLUCOSE 81 mg/dL (74-106); POTASSIUM 4.4 mmol/L (3.5-5.1); TOTAL PROTEIN, SERUM 8.1 g/dL (6.4-8.2); UREA NITROGEN, BLOOD 17 mg/dL (7-18); VALPROIC ACID 62 ug/mL (50-100)
[2017-09-15 23:05] LABS: *AMPHETAMINE, URINE NEGATIVE (NEGATIVE); *BARBITURATE, URINE NEGATIVE (NEGATIVE); *CANNABINOID, URINE NEGATIVE (NEGATIVE); *COCCAINE, URINE NEGATIVE (NEGATIVE); *OPIATE, URINE NEGATIVE (NEGATIVE)
[2017-09-15 23:07] LABS: ETHANOL < 3 MG/DL (0-0)
[2017-09-15 23:11] LABS: THYROID STIMULATING HORMONE 1.391 mIU/mL (0.358-3.740)
[2017-09-15 23:19] LABS: *PHENCYCLIDINE SCREEN,URINE NEGATIVE (NEGATIVE)
[2017-09-16] MEDS ORDERED: risperiDONE 1 MG TABLET PO SCH (04:00)
[2017-09-16] MEDS ORDERED: OLANZAPINE 5 MG TABLET ONE (04:12)
[2017-09-16] MEDS ORDERED: OLANZAPINE 5 MG TABLET PO ONE (04:15)
[2017-09-16 05:10] VITALS: BP 95/54
[2017-10-08] MEDS ORDERED: ACET325T80 PO (21:28)
[2017-10-08] MEDS ORDERED: OXYC-117 PO (21:28)
== END 2017-09-16 05:10 | disposition home or self-care (01) ==
LOC: ER 22:10
DX: R60.0 Localized edema (principal); F31.9 Bipolar disorder, unspecified; E78.00 Pure hypercholesterolemia, unspecified; G89.29 Other chronic pain; Z79.82 Long term (current) use of aspirin; M48.00 Spinal stenosis, site unspecified
CPT/HCPCS: 36415; 71045; 80048; 80076; 80164; 80178; 80307; 81001; 83880; 84443; 84484; 85025; 93005; 99285; A4663; G0480 ×2; G0481; 70030-TC

== ENCOUNTER 2018-03-07 10:50 | Emergency (ER) | payer OTHER ==
[~2018-03-07] VITALS: Ht 167.6 cm; Wt 63.5 kg
[~2018-03-07 10:50] MED LIST changes: +HYDR-4384 PO; -HYDR-552 PO; +OXYC-117 PO
[2018-03-07] MEDS ORDERED: PHENAZOPYRIDINE HCL 100 MG TABLET PO ONE (11:15)
[2018-03-07 11:19] LABS: *BILIRUBIN,URIN NEGATIVE (NEGATIVE); *BLOOD, URINE Trace-intact (NEGATIVE); *CLARITY,URINE TURBID (CLEAR); *COLOR,URINE YELLOW (YELLOW); *KETONES,URINE TRACE (NEGATIVE); *PROTEIN,URINE 2+ (NEGATIVE); LEUKOCYTE ESTERASE ,URINE 2+ (NEGATIVE); NITRITE, URINE POSITIVE (NEGATIVE); PH,URINE 7.5 (5.0-8.0); UGLUCOSE NEGATIVE (NEGATIVE)
--- NOTE | 2018-03-07 11:20 | NUR ---
PT REFUSED THE CT AND BLOOD DRAW.
[2018-03-07] MEDS ORDERED: TRIH2TAB3 PO (11:22)
[2018-03-07] MEDS ORDERED: TRAZ-182 PO (11:22)
[2018-03-07] MEDS ORDERED: PHENAZOPYRIDINE HCL 100 MG TABLET ONE (11:22)
[2018-03-07] MEDS ORDERED: MEMA5TAB15 PO (11:22)
[2018-03-07] MEDS ORDERED: IBUP-1955 PO (11:22)
[2018-03-07] MEDS ORDERED: METF-442 PO (11:22)
[2018-03-07] MEDS ORDERED: FOLI1TAB16 PO (11:22)
[2018-03-07 11:26] LABS: BACTERIA,URINE MANY /HPF (NONE SEEN); SQUAMOUS EPITHELIAL CELL,UR FEW /HPF (NONE SEEN); WBC,URINE 20-50 /HPF (0-3)
[2018-03-07] MEDS ORDERED: CEPHALEXIN MONOHYDRATE 500 MG CAPSULE PO ONE (11:45)
--- NOTE | 2018-03-07 11:47 | NUR ---
CALLED DR. AMAYA OFFICE AND LEFT A MESSAGE
[2018-03-07] MEDS ORDERED: CEPHALEXIN MONOHYDRATE 500 MG CAPSULE ONE (11:53)
--- NOTE | 2018-03-07 12:03 | NUR ---
CALLED [facility] FOR TRANSFER, ETA 45 MINUTES, TRIP NUMBER [phone]
--- NOTE | 2018-03-07 12:41 | NUR ---
[facility] TRANSFERED THE PT [facility] IN STABLE CONDITION.
[2018-03-07 12:42] VITALS: BP 101/55
== END 2018-03-07 12:44 | disposition home or self-care (01) ==
LOC: ER 11:42
DX: N39.0 Urinary tract infection, site not specified (principal); E78.00 Pure hypercholesterolemia, unspecified; G89.29 Other chronic pain; M54.9 Dorsalgia, unspecified; Z79.82 Long term (current) use of aspirin
CPT/HCPCS: 87077; 87086; A4663

== ENCOUNTER 2018-05-06 23:33 | Inpatient (IN) | payer OTHER ==
[~2018-05-06] VITALS: Ht 172.7 cm; Wt 70.9 kg
[~2018-05-06 23:33] MED LIST changes: -GABA-534 PO; -HYDR-4384 PO; +IBUP-1955 PO; +MEMA5TAB15 PO; +METF-442 PO; -OXYC-117 PO; +TRAZ-182 PO; +TRIH2TAB3 PO
--- NOTE | 2018-05-06 23:45 | NUR ---
Dr. Medina at bedside for MSE.
[2018-05-07] MEDS ORDERED: PHEN-894 PO (00:09)
[2018-05-07] MEDS ORDERED: PHEN-705 PO (00:09)
[2018-05-07] MEDS ORDERED: ACET325T80 PO (00:09)
[2018-05-07 00:25] LABS: BASOPHILS % (AUTO) 0.3 % (0.0-2.0); EOSINOPHILS % (AUTO) 0.3 % (0.0-7.0); HEMATOCRIT 30.7 % (36.7-47.1); HEMOGLOBIN 10.5 g/dL (12.5-16.3); LYMPHOCYTES # (AUTO) 2.2 K/uL (20.0-40.0); MEAN CORPUSCULAR HEMOGLOBIN 34.8 uug (23.8-33.4); MEAN CORPUSCULAR HGB CONC 34 g/dL (32.5-36.3); MEAN CORPUSCULAR VOLUME 101.5 fL (73.0-96.2); MONOCYTES # (AUTO) 1.5 K/uL (2.0-10.0); MONOCYTES % (AUTO) 13.9 % (0.0-11.0); NEUTROPHILS # (AUTO) 7.2 K/uL (1.8-8.9); NEUTROPHILS % (AUTO) 65.5 % (38.5-71.5); PLATELET COUNT (AUTO) 113 K/uL (152-348); RED BLOOD CELL COUNT(AUTO) 3.02 MIL/uL (4.06-5.63)
[2018-05-07 00:38] LABS: *BILIRUBIN,URIN NEGATIVE (NEGATIVE); *BLOOD, URINE 3+ (NEGATIVE); *CLARITY,URINE CLOUDY (CLEAR); *COLOR,URINE YELLOW (YELLOW); *KETONES,URINE TRACE (NEGATIVE); LEUKOCYTE ESTERASE ,URINE 3+ (NEGATIVE); NITRITE, URINE POSITIVE (NEGATIVE); UGLUCOSE NEGATIVE (NEGATIVE)
--- NOTE | 2018-05-07 00:38 | NUR ---
Pt provided urine sample, sent to lab.
[2018-05-07 00:40] LABS: BILIRUBIN,DIRECT 0.1 mg/dL (0.0-0.2); BILIRUBIN,TOTAL 0.3 mg/dL (0.2-1.0); CREATININE 0.9 mg/dL (0.6-1.3); POTASSIUM 3.4 mmol/L (3.5-5.1); TOTAL PROTEIN, SERUM 6.7 g/dL (6.4-8.2)
--- NOTE | 2018-05-07 00:47 | NUR ---
Pt out of ER for CT.
[2018-05-07] MEDS ORDERED: IV NORMAL SALINE 500 ML BAG IV ONE (01:00)
[2018-05-07 01:03] LABS: RBC,URINE 20-50 /HPF (0-3)
[2018-05-07 01:04] LABS: BACTERIA,URINE MANY /HPF (NONE SEEN); WBC,URINE 80-100 /HPF (0-3)
[2018-05-07] MEDS ORDERED: CEFTRIAXONE 1 G in IV DEXTROSE 5% 50 ML IV ONE (01:15)
[2018-05-07] MEDS ORDERED: CEFTRIAXONE 1 G VIAL ONE (01:27)
[2018-05-07 01:50] LABS: BAND % (MANUAL) 2 % (0-10); BASOPHILS % (MANUAL) 1 % (0-2); LYMPHOCYTES % (MANUAL) 23 % (20-40); METAMYELOCYTES % 1 % (0-1); MONOCYTES % (MANUAL) 12 % (2-10); MYELOCYTES % 2 % (0-0); NEUTROPHILS % (MANUAL) 56 % (42-75); PROMYELOCYTES % 2 %
--- NOTE | 2018-05-07 02:01 | NUR ---
Paged [facility]ph[facility]. Maura for Karina Avendaño
--- NOTE | 2018-05-07 02:03 | NUR ---
Dr Medina speaking with Karina Avendaño
--- NOTE | 2018-05-07 02:43 | NUR ---
Report given to Nancy SINGLETON Medsurg.
--- NOTE | 2018-05-07 02:50 | NUR ---
Dr. Medina speaking with Dr. Kunz of [facility].
--- NOTE | 2018-05-07 04:18 | NUR ---
Patient agitated,yelling and confused. Dr Medina made aware
[2018-05-07] MEDS ORDERED: diphenhydrAMINE 50 MG/1 ML VIAL ONE (04:21)
[2018-05-07] MEDS ORDERED: HALOPERIDOL LACTATE 5 MG/1 ML VIAL ONE (04:21)
[2018-05-07] MEDS ORDERED: diphenhydrAMINE 50 MG/1 ML VIAL IV ONE (04:30)
[2018-05-07] MEDS ORDERED: HALOPERIDOL LACTATE 5 MG/1 ML VIAL IV ONE (04:30)
--- NOTE | 2018-05-07 06:10 | NUR ---
[facility] spoke with . Patient to be admitted in [place], transfer to [place] cancelled.
[2018-05-07 07:00] VITALS: BP 94/43
[2018-05-07] MEDS ORDERED: IBUPROFEN 600 MG TABLET PO PRN (07:30)
[2018-05-07] MEDS ORDERED: PHENAZOPYRIDINE HCL 100 MG TABLET PO PRN (07:30)
[2018-05-07] MEDS ORDERED: DOCUSATE SODIUM 250 MG CAPSULE PO PRN (07:30)
[2018-05-07] MEDS ORDERED: ACETAMINOPHEN 325 MG TABLET PO PRN (07:30)
--- NOTE | 2018-05-07 07:30 | NUR ---
ADMITTED PATIENT. PATIENT IS ALERT AND ORIENTED X4, URDU SPEAKING ONLY. UNDERSTANDS SOME IRANIAN. PROSTHESIS ON RIGHT ARM. NO SIGNS OF DISTRESS, PATIENT DENIES ANY PAIN. FLUIDS RUNNING. WILL CONTINUE TO MONITOR.
[2018-05-07] MEDS ORDERED: METFORMIN HCL 500 MG TABLET PO SCH (08:00)
[2018-05-07] MEDS ORDERED: BETHANECHOL CHLORIDE 25 MG TABLET PO SCH (09:00)
[2018-05-07] MEDS: FOLIC ACID 1 MG TABLET PO SCH (09:49)
[2018-05-07] MEDS: ASPIRIN EC 81 MG TABLET.DR PO SCH (09:49)
[2018-05-07] MEDS: DIVALPROEX SPRINKLE 125 MG CAP.SPRINK PO SCH ×2 (09:50→17:00)
[2018-05-07] MEDS: MEMANTINE HCL 5 MG TABLET PO SCH ×2 (09:50→17:00)
[2018-05-07] MEDS: TAMSULOSIN HCL 0.4 MG CAP.SR.24H PO SCH (09:50)
[2018-05-07] MEDS: risperiDONE 2 MG TABLET PO SCH ×2 (09:50→17:00)
[2018-05-07] MEDS: TRIHEXYPHENIDYL HCL 2 MG TABLET PO SCH ×2 (09:56→17:01)
[2018-05-07] MEDS: IV NS 1000 ML 1,000 ML IV PRN ×2 (10:00→20:26)
[2018-05-07 11:29] VITALS: BP 92/30
--- NOTE | 2018-05-07 14:00 | NUR ---
SPOKE TO ABOUT PATIENT'S MEDICATION ORDER FOR METFORMIN. NO HISTORY OF DIABETES IN PATIENT'S CHART. DR DISCONTINUED MEDICATION. MADE AWARE OF LOW BP, PATIENT IS ASYMPTOMATIC AND ON IV FLUIDS ORDERED. MADE AWARE OF EDEMA ON LOWER EXTREMITIES WELL. LIMITED PATIENT'S FLUID INTAKE PO.
[2018-05-07 15:27] VITALS: BP 112/58
[2018-05-07] MEDS ORDERED: POTASSIUM CHLORIDE 20 MEQ POWDER PACKET PO ONE (16:00)
--- NOTE | 2018-05-07 16:30 | NUR ---
RECEIVED BLOOD CULTURE RESULTS FROM LAB DRAWN ON 05/07/18 [id number], SHOWS GRAM NEGATIVE RODS. PATIENT ON ROCEPHIN.
--- NOTE | 2018-05-07 18:51 | NUR ---
REMOVED RIGHT PROSTHESIS AND PROSTHETIC SLEEVE, ASSESSED RIGHT ARM. LEFT PROSTHESIS/SLEEVE OFF AND OPEN TO AIR R/T MOIST INTACT SKIN AND MALODOR.
[2018-05-07 19:15] VITALS: BP 87/32
--- NOTE | 2018-05-07 19:20 | NUR ---
RECEIVED PATIENT LYING IN BED. IN NO ACUTE DISTRESS. HAS NO COMPLAINTS OF PAIN OR SOB. IV LINE ON THE RIGHT FOREARM, INTACT AND PATENT. SAFETY MEASURES INITIATED. BED IS IN A LOW AND LOCKED POSITION. CALL LIGHT WITHIN REACH. WILL CONTINUE TO MONITOR.
[2018-05-07] MEDS: TRAZODONE 50 MG TABLET PO SCH (21:07)
[2018-05-07] MEDS: ATORVASTATIN 10 MG TABLET PO SCH (21:08)
[2018-05-08] MEDS: CEFTRIAXONE 1 G in IV DEXTROSE 5% 50 ML IV SCH (02:20)
[2018-05-08 03:20] VITALS: BP 99/49
--- NOTE | 2018-05-08 06:39 | NUR ---
PATIENT SLEPT WELL THROUGHOUT SHIFT. HAD NO SIGNS OF ACUTE DISTRESS. NO COMPLAINTS OF PAIN OR SOB. IV LINE ON RIGHT FOREARM IS INTACT AND PATENT. ANTIBIOTIC ROCEFIN WAS STARTED, TOLERATED WELL. SAFETY MEASURES PROVIDED. WILL ENDORSE CONTINUITY OF CARE TO NEXT SHIFT.
[2018-05-08 06:54] LABS: CREATININE 0.7 mg/dL (0.6-1.3); POTASSIUM 3.4 mmol/L (3.5-5.1)
--- NOTE | 2018-05-08 07:40 | NUR ---
Pt received in bed, resting, no distress noted, IV fluids are running, site is intact. Pt is Urdu speaking only, but able to state his needs. Safety reinforced.
[2018-05-08] MEDS: risperiDONE 2 MG TABLET PO SCH ×2 (10:02→17:20)
[2018-05-08] MEDS: MEMANTINE HCL 5 MG TABLET PO SCH ×2 (10:02→17:19)
[2018-05-08] MEDS: DIVALPROEX SPRINKLE 125 MG CAP.SPRINK PO SCH ×2 (10:02→17:20)
[2018-05-08] MEDS: FOLIC ACID 1 MG TABLET PO SCH (10:02)
[2018-05-08] MEDS: TAMSULOSIN HCL 0.4 MG CAP.SR.24H PO SCH (10:02)
[2018-05-08] MEDS: ASPIRIN EC 81 MG TABLET.DR PO SCH (10:03)
[2018-05-08] MEDS: TRIHEXYPHENIDYL HCL 2 MG TABLET PO SCH ×2 (10:03→17:20)
[2018-05-08 11:20] VITALS: BP 98/52
[2018-05-08] MEDS: IV NS 1000 ML 1,000 ML IV PRN (11:38)
[2018-05-08] MEDS ORDERED: POTASSIUM CHLORIDE 20 MEQ POWDER PACKET PO ONE (14:30)
[2018-05-08 15:14] VITALS: BP 101/57
[2018-05-08 19:13] VITALS: BP 113/54
--- NOTE | 2018-05-08 19:20 | NUR ---
RECEIVED PT AWAKE, ALERT AND ORIENTEDX4. PT SHOWS NO SIGNS OF ACUTE DISTRESS. PT IV INTACT AND PATENT. CALL LIGHT WITHIN REACH. SAFETY AND COMFORT PROVIDED.
[2018-05-08] MEDS: TRAZODONE 50 MG TABLET PO SCH (20:14)
[2018-05-08] MEDS: ATORVASTATIN 10 MG TABLET PO SCH (20:14)
[2018-05-09] MEDS: IV NS 1000 ML 1,000 ML IV PRN (01:06)
[2018-05-09] MEDS: CEFTRIAXONE 1 G in IV DEXTROSE 5% 50 ML IV SCH (01:06)
[2018-05-09 03:33] VITALS: BP 123/59
--- NOTE | 2018-05-09 06:08 | NUR ---
PT SLEPT THROUGHOUT THE SHIFT. PT IV INTACT. PRESCRIBED MEDICATION GIVEN AND PT TOLERATED IT WELL. PT TURNED AND REPOSITIONED. PT SHOWS NO SIGNS OF DISTRESS. SAFETY AND COMFORT PROVIDED. ALL NEEDS ARE MET. WILL ENDORSE ACCORDINGLY TO INCOMING NURSE FOR CONTINUITY OF CARE.
[2018-05-09 06:42] LABS: BASOPHILS % (AUTO) 0.3 % (0.0-2.0); EOSINOPHILS # (AUTO) 0.1 K/uL (0.0-0.7); HEMATOCRIT 29.5 % (36.7-47.1); HEMOGLOBIN 10.2 g/dL (12.5-16.3); LYMPHOCYTES # (AUTO) 1.8 K/uL (20.0-40.0); LYMPHOCYTES % (AUTO) 27.6 % (20.5-51.5); MEAN CORPUSCULAR HEMOGLOBIN 34.8 uug (23.8-33.4); MEAN CORPUSCULAR HGB CONC 35 g/dL (32.5-36.3); MEAN CORPUSCULAR VOLUME 100.2 fL (73.0-96.2); MONOCYTES # (AUTO) 0.5 K/uL (2.0-10.0); MONOCYTES % (AUTO) 7.6 % (0.0-11.0); NEUTROPHILS # (AUTO) 4.1 K/uL (1.8-8.9); NEUTROPHILS % (AUTO) 62.5 % (38.5-71.5); PLATELET COUNT (AUTO) 146 K/uL (152-348); RED BLOOD CELL COUNT(AUTO) 2.94 MIL/uL (4.06-5.63); WHITE BLOOD COUNT (AUTO) 6.5 K/uL (3.6-10.2)
[2018-05-09 06:52] LABS: BILIRUBIN,TOTAL 0.2 mg/dL (0.2-1.0); CREATININE 0.7 mg/dL (0.6-1.3); MAGNESIUM 1.6 mg/dL (1.8-2.4); PHOSPHOROUS 3.3 mg/dL (2.5-4.9); POTASSIUM 3.8 mmol/L (3.5-5.1); TOTAL PROTEIN, SERUM 6.4 g/dL (6.4-8.2)
[2018-05-09] MEDS: TAMSULOSIN HCL 0.4 MG CAP.SR.24H PO SCH (09:01)
[2018-05-09] MEDS: MEMANTINE HCL 5 MG TABLET PO SCH (09:01)
[2018-05-09] MEDS: DIVALPROEX SPRINKLE 125 MG CAP.SPRINK PO SCH (09:01)
[2018-05-09] MEDS: risperiDONE 2 MG TABLET PO SCH (09:02)
[2018-05-09] MEDS: FOLIC ACID 1 MG TABLET PO SCH (09:02)
[2018-05-09] MEDS: ASPIRIN EC 81 MG TABLET.DR PO SCH (09:02)
[2018-05-09] MEDS: TRIHEXYPHENIDYL HCL 2 MG TABLET PO SCH (09:02)
[2018-05-09 12:00] VITALS: BP_SYST 124; BP_SYST 98; BP_DIAS 61; BP_DIAS 64
[2018-05-09] MEDS ORDERED: MAGNESIUM OXIDE 400 MG TABLET PO ONE (15:45)
--- NOTE | 2018-05-09 15:51 | NUR ---
DISCHARGE NOTED, PROTOCOL FOLLOWED. ALL BELONGINGS ACCOUNTED FOR AND SENT WITH PATIENT. IV REMOVED WITH NO REDNESS OR IRRITATION NOTED.
== END 2018-05-09 15:30 | DRG 720 ==
LOC: ER 23:34 → MED 05-07 06:30
PROVIDERS: ADMIT Internal Medicine; ATTEND Internal Medicine
DX: A41.9 Sepsis, unspecified organism (principal); G93.41 Metabolic encephalopathy; N39.0 Urinary tract infection, site not specified; E78.00 Pure hypercholesterolemia, unspecified; E86.0 Dehydration; E78.5 Hyperlipidemia, unspecified; F31.9 Bipolar disorder, unspecified; N40.0 Benign prostatic hyperplasia without lower urinary tract symptoms; Z79.82 Long term (current) use of aspirin; Z79.899 Other long term (current) drug therapy; R90.82 White matter disease, unspecified; Z86.73 Personal history of transient ischemic attack (TIA), and cerebral infarction without residual deficits; G89.29 Other chronic pain; M54.9 Dorsalgia, unspecified; M54.2 Cervicalgia
CPT/HCPCS: 36415; 70030-TC; 70450; 71045; 72125; 83605; 83735; 84100; 85025; 85730; 87040; 87077; 87086; 93005; A4663; G0378; J0696; J1200; J1630; J7030; J7060

== ENCOUNTER 2018-05-23 22:42 | Emergency (ER) | payer OTHER ==
[~2018-05-23] VITALS: Ht 170.2 cm; Wt 77.1 kg
[~2018-05-23 22:42] MED LIST changes: -METF-442 PO
[2018-05-23] MEDS ORDERED: MORPHINE SULFATE 4 MG/1 ML DISP.SYRIN IV ONE (23:00)
[2018-05-23] MEDS ORDERED: LIDOCAINE 2% (UROJET) 10 ML JELLY MM ONE ×2 (23:00→23:38)
[2018-05-23 23:13] LABS: BASOPHILS % (AUTO) 0.2 % (0.0-2.0); MEAN CORPUSCULAR HGB CONC 35 g/dL (32.5-36.3); NEUTROPHILS # (AUTO) 7.6 K/uL (1.8-8.9)
[2018-05-23] MEDS ORDERED: PHEN-894 PO (23:19)
[2018-05-23] MEDS ORDERED: PHEN-705 PO (23:19)
[2018-05-23] MEDS ORDERED: METF-442 PO (23:19)
[2018-05-23] MEDS ORDERED: DOCU250C14 PO (23:19)
[2018-05-23] MEDS ORDERED: ACET325T80 PO (23:19)
[2018-05-23 23:30] LABS: EOSINOPHILS % (AUTO) 0.1 % (0.0-7.0); HEMATOCRIT 33.7 % (36.7-47.1); HEMOGLOBIN 11.9 g/dL (12.5-16.3); LYMPHOCYTES # (AUTO) 1.5 K/uL (20.0-40.0); LYMPHOCYTES % (AUTO) 14.7 % (20.5-51.5); MEAN CORPUSCULAR HEMOGLOBIN 34.5 uug (23.8-33.4); MEAN CORPUSCULAR VOLUME 97.8 fL (73.0-96.2); MONOCYTES # (AUTO) 0.9 K/uL (2.0-10.0); MONOCYTES % (AUTO) 8.7 % (0.0-11.0); NEUTROPHILS % (AUTO) 76.3 % (38.5-71.5); PLATELET COUNT (AUTO) 195 K/uL (152-348); RED BLOOD CELL COUNT(AUTO) 3.44 MIL/uL (4.06-5.63)
[2018-05-23] MEDS ORDERED: MORPHINE SULFATE 4 MG/1 ML DISP.SYRIN ONE (23:38)
--- NOTE | 2018-05-24 00:01 | NUR ---
Attempted to insert 18 fr. hilliard without success, attempted 16 caude and 14 caude without success there is resistence and hilliard will not insert
[2018-05-24 00:30] LABS: BILIRUBIN,DIRECT 0.1 mg/dL (0.0-0.2); BILIRUBIN,TOTAL 0.4 mg/dL (0.2-1.0); CREATININE 0.9 mg/dL (0.6-1.3); POTASSIUM 3.5 mmol/L (3.5-5.1); TOTAL PROTEIN, SERUM 8.4 g/dL (6.4-8.2)
--- NOTE | 2018-05-24 00:49 | NUR ---
Pt. resting in bed w/ eyes closed, IV patent, NAD,
--- NOTE | 2018-05-24 01:02 | NUR ---
Assisted pt. to void w/ urinal - specimen collected and sent to lab - urine is bright red - no clots noted,
--- NOTE | 2018-05-24 01:02 | NUR ---
Pt. taken off unit for CT by [employer]. tech.,
[2018-05-24 01:19] LABS: *BILIRUBIN,URIN NEGATIVE (NEGATIVE); *BLOOD, URINE 1+ (NEGATIVE); *KETONES,URINE 1+ (NEGATIVE); LEUKOCYTE ESTERASE ,URINE 1+ (NEGATIVE); NITRITE, URINE NEGATIVE (NEGATIVE); PH,URINE >=9.0 (5.0-8.0); UGLUCOSE NEGATIVE (NEGATIVE)
[2018-05-24 01:21] LABS: *CLARITY,URINE TURBID (CLEAR); *COLOR,URINE BLOODY (YELLOW)
[2018-05-24 01:22] LABS: BACTERIA,URINE NONE SEEN /HPF (NONE SEEN); RBC,URINE TNTC /HPF (0-3); SQUAMOUS EPITHELIAL CELL,UR NONE SEEN /HPF (NONE SEEN)
--- NOTE | 2018-05-24 01:25 | NUR ---
Pt. back from CT, resting in bed w/ eyes closed, IV patent and flushes w/o difficulty, NAD
[2018-05-24] MEDS ORDERED: CEFTRIAXONE 1 G in IV DEXTROSE 5% 50 ML IV ONE (02:00)
[2018-05-24] MEDS ORDERED: NITROFURANTOIN/NITROFURAN MAC 100 MG CAPSULE PO ONE (02:30)
--- NOTE | 2018-05-24 02:33 | NUR ---
Pt. refused admission, [facility], spoke w/ Alek - beena #[phone] ETA [phone]
[2018-05-24] MEDS ORDERED: CEFTRIAXONE 1 G VIAL ONE (02:49)
[2018-05-24] MEDS ORDERED: NITROFURANTOIN/NITROFURAN MAC 100 MG CAPSULE ONE (02:54)
--- NOTE | 2018-05-24 03:54 | NUR ---
Jane Tatum assisted and gave report to Ana caregiver, Sne[employer]INT[employer] [id number]
--- NOTE | 2018-05-24 05:00 | NUR ---
Pt. resting in bed w/ eyes closed, IV patent - no s/s infiltration/phlebitis, awaiting transport
--- NOTE | 2018-05-24 06:09 | NUR ---
[id number] here for transport,
--- NOTE | 2018-05-24 06:19 | NUR ---
Patient discharged to home in stable conditon. Written and verbal after care instructions given. Patient verbalizes understanding of instructions. Pt. d/c back to [facility] per MD order w/ prescription, all belongings w/ pt., ID band/IV removed, left on stretcher by [facility], NAD, VSS
== END 2018-05-24 06:21 | disposition home or self-care (01) ==
LOC: ER 22:46
DX: N39.0 Urinary tract infection, site not specified (principal); G89.4 Chronic pain syndrome; M54.5 Low back pain; E78.5 Hyperlipidemia, unspecified; Z79.891 Long term (current) use of opiate analgesic; Z79.1 Long term (current) use of non-steroidal anti-inflammatories (NSAID); Z79.82 Long term (current) use of aspirin; Z79.899 Other long term (current) drug therapy
CPT/HCPCS: 36415; 74176; 76870; 80048; 80076; 81001; 83690; 85025; 85730; 87086; 93005; 96365; 96375; 99284; J0696; J2270; J7060; A4663

== ENCOUNTER 2018-06-06 19:31 | Inpatient (IN) | payer OTHER ==
[~2018-06-06] VITALS: Ht 170.2 cm; Wt 72.6 kg
[~2018-06-06 19:31] MED LIST changes: +DOCU250C14 PO; +METF-442 PO; +PHEN-705 PO; +PHEN-894 PO; -TRAZ-182 PO; -TRIH2TAB3 PO
[2018-06-06] MEDS ORDERED: KETOROLAC TROMETHAMINE 15 MG INJ IV ONE (19:45)
[2018-06-06] MEDS ORDERED: IV NORMAL SALINE 1000 ML BAG IV ONE ×2 (19:45→20:45)
[2018-06-06] MEDS ORDERED: METOCLOPRAMIDE HCL 10 MG/2 ML VIAL IV ONE (19:45)
--- NOTE | 2018-06-06 20:00 | NUR ---
Pt brought in by private ambulance from [facility] with c/o abdominal pain since Sunday this week & has been worse today 12/07 pain. Pt is AAOX2. Per report, pt has also been having decreased appetite, and 1 episode of diarrhea. Pt has prosthetic in right arm. Pt placed on resistor winder. Safety measures implemented.
[2018-06-06] MEDS ORDERED: KETOROLAC TROMETHAMINE 15 MG INJ ONE (20:02)
[2018-06-06] MEDS ORDERED: METOCLOPRAMIDE HCL 10 MG/2 ML VIAL ONE (20:02)
[2018-06-06 20:05] LABS: BASOPHILS # (AUTO) 0.1 K/uL (0.0-8.0); BASOPHILS % (AUTO) 0.5 % (0.0-2.0); EOSINOPHILS % (AUTO) 0.1 % (0.0-7.0); HEMATOCRIT 31.7 % (36.7-47.1); HEMOGLOBIN 10.8 g/dL (12.5-16.3); LYMPHOCYTES # (AUTO) 1.6 K/uL (20.0-40.0); LYMPHOCYTES % (AUTO) 13.5 % (20.5-51.5); MEAN CORPUSCULAR HEMOGLOBIN 32.5 uug (23.8-33.4); MEAN CORPUSCULAR HGB CONC 34 g/dL (32.5-36.3); MEAN CORPUSCULAR VOLUME 95.7 fL (73.0-96.2); MONOCYTES # (AUTO) 0.6 K/uL (2.0-10.0); MONOCYTES % (AUTO) 4.7 % (0.0-11.0); NEUTROPHILS # (AUTO) 9.8 K/uL (1.8-8.9); NEUTROPHILS % (AUTO) 81.2 % (38.5-71.5); PLATELET COUNT (AUTO) 226 K/uL (152-348); RED BLOOD CELL COUNT(AUTO) 3.32 MIL/uL (4.06-5.63); WHITE BLOOD COUNT (AUTO) 12.1 K/uL (3.6-10.2)
[2018-06-06] MEDS ORDERED: TRAZ-182 PO (20:18)
[2018-06-06 20:30] LABS: POTASSIUM 4.1 mmol/L (3.5-5.1)
[2018-06-06 20:35] LABS: BILIRUBIN,DIRECT 0.1 mg/dL (0.0-0.2); BILIRUBIN,TOTAL 0.4 mg/dL (0.2-1.0); TOTAL PROTEIN, SERUM 9.6 g/dL (6.4-8.2)
[2018-06-06] MEDS ORDERED: PIPERACILLIN SODIUM/TAZOBACTAM 3.375 G in IV DEXTROSE 5% 50 ML IV ONE (20:45)
[2018-06-06] MEDS ORDERED: LEVOFLOXACIN 750MG/D5W 150 ML IV ONE ×2 (20:45→21:37)
[2018-06-06] MEDS ORDERED: PIPERACILLIN/TAZOBACTAM/D5W 50 ML IV ONE (20:55)
[2018-06-06] MEDS ORDERED: LIDOCAINE 2% (UROJET) 10 ML JELLY MM ONE ×2 (21:20→21:30)
--- NOTE | 2018-06-06 21:28 | NUR ---
Unable to obtain urine sample at this time. aware.
[2018-06-06] MEDS ORDERED: VANCOMYCIN IV 1,000 MG in IV DEXTROSE 5% 250 ML IV ONE (21:45)
--- NOTE | 2018-06-06 21:47 | NUR ---
Call placed to [facility] nephrology, Dr. Sohrt has been paged.
--- NOTE | 2018-06-06 21:55 | NUR ---
Dr. Zavala on phone with Dr. Short.
[2018-06-06] MEDS ORDERED: VANCOMYCIN IV 200 ML ONE (22:19)
--- NOTE | 2018-06-06 22:27 | NUR ---
Pt. admitted to Telemetry, under care of Dr. Short. Diagnosis: Sepsis, UTI, possible osteomylietis. Belongs List completed. mrsa swab done. report given to floor nurse.
--- NOTE | 2018-06-06 22:50 | NUR ---
Pt brought to floor in stable condition. No acute distress noted at this time.
--- NOTE | 2018-06-06 22:55 | NUR ---
RECEIVED PT FROM ER VIA GURNEY. PT SHOWS NO SIGNS OF ACUTE DISTRESS. UNDER DR STAPLES.DX: SEPSIS/UTI/ POSSIBLE OSTEOMYELITIS BELONGING LIST DONE.PHOTOTAKEN ON HIS SCROTUM AND HIS LEFT EYEBROW. SAFETY AND COMFORT PROVIDED.CALL LIGHT WITHIN REACH. SENIOR LIVING ASSESSMENT DONE.ADMISSION PROCESS AND CARE PLAN INITIATED. PT STABLE. WILL CONTINUE TO MONITOR.
[2018-06-07] VITALS: BP 95/49
[2018-06-07] MEDS ORDERED: LEVOFLOXACIN 500 MG/D5W 500 MG in PREMIXED 1 EACH IV SCH ×2 (00:45→20:00)
[2018-06-07 04:00] VITALS: BP 89/51
[2018-06-07] MEDS ORDERED: PIPERACILLIN/TAZOBACTAM/D5W 50 ML IV ONE (04:49)
[2018-06-07] MEDS ORDERED: PIPERACILLIN/TAZOBACTAM/D5W 3.375 G in PREMIXED 1 EACH IV SCH ×2 (06:00→14:00)
--- NOTE | 2018-06-07 06:20 | NUR ---
PT SLEPT INTERMITTENTLY. PT SHOWS NO SIGNS OF ACUTE DISTRESS. PRESCRIBED MEDICATION GIVEN AND PT TOLERATED IT WELL.PT TURNED AND REPOSITIONED. IV SITE INTACT.CALL LIGHT WITHIN REACH. BED ALARM ON. SAFETY AND COMFORT PROVIDED. ALL NEEDS ARE MET.WILL ENDORSE ACCORDINGLY TO INCOMING NURSE FOR CONTINUITY OF CARE.
[2018-06-07 06:39] LABS: BASOPHILS % (AUTO) 0.1 % (0.0-2.0); EOSINOPHILS % (AUTO) 0.3 % (0.0-7.0); HEMATOCRIT 24.4 % (36.7-47.1); HEMOGLOBIN 8.5 g/dL (12.5-16.3); LYMPHOCYTES # (AUTO) 1.2 K/uL (20.0-40.0); LYMPHOCYTES % (AUTO) 12.4 % (20.5-51.5); MEAN CORPUSCULAR HEMOGLOBIN 33.1 uug (23.8-33.4); MEAN CORPUSCULAR HGB CONC 35 g/dL (32.5-36.3); MEAN CORPUSCULAR VOLUME 95.3 fL (73.0-96.2); MONOCYTES # (AUTO) 0.5 K/uL (2.0-10.0); MONOCYTES % (AUTO) 5.3 % (0.0-11.0); NEUTROPHILS % (AUTO) 81.9 % (38.5-71.5); PLATELET COUNT (AUTO) 177 K/uL (152-348); RED BLOOD CELL COUNT(AUTO) 2.57 MIL/uL (4.06-5.63); WHITE BLOOD COUNT (AUTO) 9.7 K/uL (3.6-10.2)
[2018-06-07 06:48] LABS: CREATININE 0.8 mg/dL (0.6-1.3); MAGNESIUM 1.7 mg/dL (1.8-2.4); PHOSPHOROUS 2.8 mg/dL (2.5-4.9); POTASSIUM 3.9 mmol/L (3.5-5.1)
[2018-06-07] MEDS ORDERED: IV D5/ 0.9% NACL 1,000 ML IV PRN (10:20)
[2018-06-07 12:14] VITALS: BP 99/58
[2018-06-07] MEDS: PIPERACILLIN/TAZOBACTAM/D5W 3.375 G in PREMIXED 1 EACH IV SCH ×2 (13:12→21:07)
[2018-06-07] MEDS ORDERED: PHENAZOPYRIDINE HCL 100 MG TABLET PO PRN ×2 (15:30)
[2018-06-07] MEDS ORDERED: ACETAMINOPHEN 325 MG TABLET PO PRN ×2 (15:30)
[2018-06-07] MEDS ORDERED: DOCUSATE SODIUM 250 MG CAPSULE PO SCH (15:30)
[2018-06-07] MEDS ORDERED: IBUPROFEN 600 MG TABLET PO PRN (15:30)
[2018-06-07] MEDS ORDERED: DOCUSATE SODIUM 250 MG CAPSULE PO PRN (15:30)
[2018-06-07 16:00] VITALS: BP 98/57
[2018-06-07] MEDS: ASPIRIN EC 81 MG TABLET.DR PO SCH (16:31)
[2018-06-07] MEDS: FOLIC ACID 1 MG TABLET PO SCH (16:31)
[2018-06-07] MEDS: DIVALPROEX SPRINKLE 125 MG CAP.SPRINK PO SCH (16:45)
[2018-06-07] MEDS: MEMANTINE HCL 5 MG TABLET PO SCH (16:45)
[2018-06-07] MEDS: BETHANECHOL CHLORIDE 25 MG TABLET PO SCH ×2 (16:46→20:49)
[2018-06-07] MEDS: TAMSULOSIN HCL 0.4 MG CAP.SR.24H PO SCH (16:46)
[2018-06-07] MEDS: risperiDONE 2 MG TABLET PO SCH (16:46)
[2018-06-07] MEDS: MAGNESIUM SULFATE/D5W 100 ML IV SCH ×2 (17:25→18:48)
[2018-06-07] MEDS: METFORMIN HCL 500 MG TABLET PO SCH (18:00)
--- NOTE | 2018-06-07 18:42 | NUR ---
PATIENT IV ACCESS NO LONGER WORKING, LEAKING, UNABLE TO USE. NEW LINE PLACED 22 GAUGE PLACED ON LEFT WRIST.
--- NOTE | 2018-06-07 19:25 | NUR ---
RECEIVED PT AWAKE, ALERT, ORIENTEDX3.. PT SHOWS NO SIGNS OF ACUTE DISTRESS. IV INTACT. CALL LIGHT WITHIN REACH. SAFETY AND COMFORT PROVIDED. WILL CONTINUE TO MONITOR.
[2018-06-07 20:00] VITALS: BP 93/55
[2018-06-07] MEDS: TRAZODONE 50 MG TABLET PO SCH (20:49)
[2018-06-07] MEDS: ATORVASTATIN 10 MG TABLET PO SCH (20:52)
--- NOTE | 2018-06-07 22:03 | NUR ---
TEXTED DR. DAVIDSON FOR MRI APPROVAL.
--- NOTE | 2018-06-07 22:04 | NUR ---
MRI APPROVED ,WILL BE DONE TOMORROW AM
[2018-06-07 22:37] VITALS: BP 110/58
[2018-06-08 00:27] LABS: *BILIRUBIN,URIN NEGATIVE (NEGATIVE); *BLOOD, URINE 2+ (NEGATIVE); *COLOR,URINE YELLOW (YELLOW); *KETONES,URINE NEGATIVE (NEGATIVE); LEUKOCYTE ESTERASE ,URINE 1+ (NEGATIVE); NITRITE, URINE NEGATIVE (NEGATIVE); UGLUCOSE NEGATIVE (NEGATIVE)
[2018-06-08 00:35] LABS: *CLARITY,URINE HAZY (CLEAR)
[2018-06-08 00:45] LABS: RBC,URINE 20-50 /HPF (0-3)
[2018-06-08 00:46] LABS: BACTERIA,URINE FEW /HPF (NONE SEEN); SQUAMOUS EPITHELIAL CELL,UR FEW /HPF (NONE SEEN); WBC,URINE 20-50 /HPF (0-3)
[2018-06-08 04:59] VITALS: BP 92/53
[2018-06-08] MEDS: PIPERACILLIN/TAZOBACTAM/D5W 3.375 G in PREMIXED 1 EACH IV SCH ×3 (05:45→21:03)
--- NOTE | 2018-06-08 05:58 | NUR ---
PT SLEPT INTERMITTENTLY. PT SHOWS NO SIGNS OF ACUTE DISTRESS. PRESCRIBED MEDICATION GIVEN AND PT TOLERATED IT WELL. IV INTACT.SAFETY AND COMFORT PROVIDED. ALL NEEDS ARE MET. WILL ENDORSE ACCORDINGLY TO INCOMING NURSE FOR CONTINUITY OF CARE.
[2018-06-08 06:41] LABS: CREATININE 0.8 mg/dL (0.6-1.3); MAGNESIUM 1.9 mg/dL (1.8-2.4); PHOSPHOROUS 2.8 mg/dL (2.5-4.9); POTASSIUM 3.4 mmol/L (3.5-5.1)
--- NOTE | 2018-06-08 06:59 | NUR ---
CALLED DR. MENDOZA FOR CRITICAL LAB THAT WAS RELAYED BY THE LAB THAT PT HAS POSITIVE BLOOD CULTURE - GRAM NEGATIVE CHAKA . CHARGE NURSE AWARE. WILL ENDORSE TO INCOMING NURSE. PT STABLE.
[2018-06-08 07:10] LABS: BASOPHILS % (AUTO) 0.2 % (0.0-2.0); EOSINOPHILS % (AUTO) 0.3 % (0.0-7.0); HEMATOCRIT 25.4 % (36.7-47.1); HEMOGLOBIN 8.7 g/dL (12.5-16.3); LYMPHOCYTES # (AUTO) 1.5 K/uL (20.0-40.0); LYMPHOCYTES % (AUTO) 15.3 % (20.5-51.5); MEAN CORPUSCULAR HEMOGLOBIN 32.7 uug (23.8-33.4); MEAN CORPUSCULAR HGB CONC 34 g/dL (32.5-36.3); MONOCYTES # (AUTO) 0.7 K/uL (2.0-10.0); MONOCYTES % (AUTO) 6.7 % (0.0-11.0); NEUTROPHILS # (AUTO) 7.7 K/uL (1.8-8.9); NEUTROPHILS % (AUTO) 77.5 % (38.5-71.5); PLATELET COUNT (AUTO) 214 K/uL (152-348); RED BLOOD CELL COUNT(AUTO) 2.67 MIL/uL (4.06-5.63); WHITE BLOOD COUNT (AUTO) 9.9 K/uL (3.6-10.2)
[2018-06-08] MEDS: METFORMIN HCL 500 MG TABLET PO SCH ×2 (08:00→17:04)
[2018-06-08] MEDS: BETHANECHOL CHLORIDE 25 MG TABLET PO SCH ×4 (08:09→20:58)
[2018-06-08] MEDS: FOLIC ACID 1 MG TABLET PO SCH (08:09)
[2018-06-08] MEDS: DIVALPROEX SPRINKLE 125 MG CAP.SPRINK PO SCH ×2 (08:09→16:43)
[2018-06-08] MEDS: risperiDONE 2 MG TABLET PO SCH ×2 (08:10→16:43)
[2018-06-08] MEDS: ASPIRIN EC 81 MG TABLET.DR PO SCH (08:11)
[2018-06-08] MEDS: MEMANTINE HCL 5 MG TABLET PO SCH ×2 (08:11→16:43)
[2018-06-08] MEDS: TAMSULOSIN HCL 0.4 MG CAP.SR.24H PO SCH ×2 (08:17→16:43)
--- NOTE | 2018-06-08 09:35 | NUR ---
CONTACTED [facility] THIS AM, SECOND TIME NOW NEW MEDICATION LIST SENT IN TO [employer] YET TO VERIFY CURRENT MEDICATIONS, NEED TO VERIFY METFORMIN ORDERS. NOT ADMINISTERED PER PATIENT HE IS NOT DIABETIC. CONTINUE TO MONITOR PATIENT SCHEDULED FOR MRI THIS AM DID NOT ADMINISTER.
[2018-06-08 10:50] VITALS: BP 89/56
--- NOTE | 2018-06-08 10:56 | NUR ---
OBTAINED CONSENT FROM PATIENT FOR MRI, ANSWERED QUESTIONS TO THE BEST OF HIS ABILITY, PATIENT CALM COOPERATIVE, HOWEVER POOR HISTORIAN, CONTINUE TO MONITOR. PATIENT WITH LOW BLOOD PRESSURE 89/56, HR 82 HOWEVER ASYMPTOMATIC.
[2018-06-08 11:23] VITALS: BP 96/49
--- NOTE | 2018-06-08 12:20 | NUR ---
PATIENT LEFT UNIT VIA AMBULANCE, SCHEDULED FOR MRI [facility] AT [facility].
--- NOTE | 2018-06-08 14:10 | NUR ---
Returned from MRI.
[2018-06-08] MEDS: POTASSIUM CHLORIDE 40 MEQ in IV D5/ 0.9% NACL 1,000 ML IV PRN (14:45)
[2018-06-08 15:05] VITALS: BP 92/58
--- NOTE | 2018-06-08 17:06 | NUR ---
no metformin given, patient had MRI with contrast today, medically contraindicated.
[2018-06-08] MEDS: VANCOMYCIN IV 1,250 MG in IV DEXTROSE 5% 500 ML IV SCH (19:04)
--- NOTE | 2018-06-08 19:36 | NUR ---
DAY SHIFT RN GAVE REPORT THAT THE PATIENT HAS ORDERS FOR NEEDLE BIOPSY AND WILL AWAITING FOR THE RADIOLODY TO CALL FOR THE SCHEDULE.
--- NOTE | 2018-06-08 19:50 | NUR ---
Received call from Debra Rooney, Transfer manager managed care from [facility]. Coordinator calling on behalf of Dr Mcclendon (Neurosurgeon). Patient to be transferred to a higher level of care. patient information provided to manager managed care. contact # for Debra [phone]. and fax # [phone]. Gave information for charge nurse Suma for tonight for any more questions and concerns that need to be addressed. MARKOS Liu notified and aware of patient to be transferred. Received call also from Shahab Michael NP for Neurosurgery to inform they are the ones that are having patient transferred.
--- NOTE | 2018-06-08 19:58 | NUR ---
GLOCOPHAGE ON HOLD FOR 48 HOURS DUE TO mri WITH CONSTRAST DONE TODAY
[2018-06-08 20:00] VITALS: BP 99/48
--- NOTE | 2018-06-08 20:10 | NUR ---
PHARMACY CLINICAL NOTES ( VANCOMYCIN DOSING) S: 62 YO male , with DX of sepsis, epidural abscess.He has been treated with Zosyn; Now ordered Vancomycin per RX. O: BUN/SCR 10/0.8; WBC 9.9, TEMP 98.6, DOSING WT 73 KG A/P: Will dose Vancomycin as 1250 mg IVPB q13h , estimated peak of 40 and trough of 17. RX will continue to monitor renal fxn and will order trough level prior to 4th dose and adjust the dose if necessary.
--- NOTE | 2018-06-08 20:18 | NUR ---
PATIENT WITH ORDERS FOR HIGHER LEVEL OF CARE ,CHARGE NURSE IS WORKING ON THE TRANSFER,
--- NOTE | 2018-06-08 20:50 | NUR ---
SOPHIA,INSEAMER FROM [facility] WAS NOTIFIED RE PT'S TRANS TO HIGHER LEVEL OF CARE AND ODTAINING AUTHORIZATION FROM [facility], MESSAGE LEFT VIA PHONE. ANDREW BENTLEY MGT MADE AWARE OF ABOVE AND TO FF.UP IN AM .,
[2018-06-08] MEDS: ATORVASTATIN 10 MG TABLET PO SCH (20:58)
[2018-06-08] MEDS: TRAZODONE 50 MG TABLET PO SCH (20:58)
--- NOTE | 2018-06-08 21:26 | NUR ---
CHARGE NURSE HAS MADE ARRANGEMENT FOR THE TRANSFER TO HIGHER LEVEL OF CARE AND WILL FOLLOW UP IN THE MORNING.
[2018-06-09 04:45] VITALS: BP 109/46
--- NOTE | 2018-06-09 04:54 | NUR ---
awake. with the same ivf on. with complaints of abdominal discomfort,cracker given and tylenol 650 mg po given for abdominal discomfort
[2018-06-09] MEDS: PIPERACILLIN/TAZOBACTAM/D5W 3.375 G in PREMIXED 1 EACH IV SCH (05:58)
--- NOTE | 2018-06-09 05:59 | NUR ---
patient slept therafter.
--- NOTE | 2018-06-09 06:16 | NUR ---
FOR TRANSFER TO HIGHER LEVEL OF CARE CHARGE NURSE FAXED THE NEDED DOCUMENTS TO [facility] UNDER THE SERVICW OF /DR SÁNCHEZ AND COMMUNICATIONS SUPERINTENDENT IS AWARE, WILL FOLLOW UP IN THE MORNING SHIFT. PATIENT WITH ORDERS FOR NEEDLE BIOPSY BUT NO SCHEDULE YET, Addendum: 06/09/18 at [address] RN [address] NEEDLE BIOPSY ORDERED CANCELLED
--- NOTE | 2018-06-09 07:30 | NUR ---
on bed, sleeping comfortably. no distress noted
[2018-06-09] MEDS: VANCOMYCIN IV 1,250 MG in IV DEXTROSE 5% 500 ML IV SCH ×3 (07:54→20:47)
[2018-06-09] MEDS: FOLIC ACID 1 MG TABLET PO SCH (08:47)
[2018-06-09] MEDS: MEMANTINE HCL 5 MG TABLET PO SCH ×2 (08:47→17:17)
[2018-06-09] MEDS: DIVALPROEX SPRINKLE 125 MG CAP.SPRINK PO SCH ×2 (08:47→17:16)
[2018-06-09] MEDS: TAMSULOSIN HCL 0.4 MG CAP.SR.24H PO SCH ×2 (08:47→17:16)
[2018-06-09] MEDS: risperiDONE 2 MG TABLET PO SCH ×2 (08:47→17:17)
[2018-06-09] MEDS: ASPIRIN EC 81 MG TABLET.DR PO SCH (08:47)
[2018-06-09] MEDS: BETHANECHOL CHLORIDE 25 MG TABLET PO SCH ×4 (08:47→20:47)
[2018-06-09 11:05] VITALS: BP 96/52
--- NOTE | 2018-06-09 12:30 | NUR ---
appetite good, fluids given as requested.
[2018-06-09] MEDS: POTASSIUM CHLORIDE 40 MEQ in IV D5/ 0.9% NACL 1,000 ML IV PRN (13:24)
--- NOTE | 2018-06-09 14:01 | NUR ---
PHARMACY CLINICAL NOTES ( VANCOMYCIN DOSING) S: To continue vancomycin for this 62 yo male patient for sepsis O: BUN/SCR 10/0.8 (06/18); WBC 9.9 (06/08), TEMP 98.5 wt 72.6 kg ht 170 cm A/P: Will continue same dose of Vancomycin 1250 mg IVPB q13h for today. 3rd dose due today at 2100. . Plan to order vanco trough level prior to 4th dose (ordered for 06/10 at 0930am). Will continue to follow
[2018-06-09] MEDS ORDERED: CEFTRIAXONE 1 G in IV DEXTROSE 5% 50 ML IV SCH (15:00)
[2018-06-09 15:02] VITALS: BP 108/53
--- NOTE | 2018-06-09 16:20 | NUR ---
sleeping comfortably . no distress noted
--- NOTE | 2018-06-09 18:44 | NUR ---
resting well. afebrile for the shift , appetite good. cooperative with care
--- NOTE | 2018-06-09 19:11 | NUR ---
navdeep causey same ivf on Addendum: 06/09/18 at 2013 by MELVA HALE RN PATIENT ORDER FOR TRANSFER TO ACUTE HIGHER LEVEL OF CARE IN ON THE PROCESS,ONGOING
--- NOTE | 2018-06-09 20:15 | NUR ---
Received a call from Transfer service, inquiring about patient's Transfer Authorization. Tried to call Zeina from [place]. Unable to leave message, her phone message box was not set up yet.
[2018-06-09 20:38] VITALS: BP 95/55
[2018-06-09] MEDS: TRAZODONE 50 MG TABLET PO SCH (20:47)
[2018-06-09] MEDS: ATORVASTATIN 10 MG TABLET PO SCH (20:47)
--- NOTE | 2018-06-09 21:59 | NUR ---
Dr Hendricks paged as the patient,s k level is 3.4 and no orders made, message left with the exchange, awaiting response
--- NOTE | 2018-06-09 22:08 | NUR ---
Dr Chirinos called back as instructional technology coach and with no further orders for k level 3.4. blood cultures repeated and will awaitin result.
--- NOTE | 2018-06-09 22:21 | NUR ---
CHARGE NURSE INFORMED THAT HE TALKED TO THE PATIENT INSURANCE FOR THE AUTHORIZATION OF THE TRANSFER AND WILL FOLLOW UP IN THE MORNING FOR THE AUTHORIZATION, SALVADOR SALGADO IS AWARE
--- NOTE | 2018-06-10 | NUR ---
Miriam carty CM from [facility]. Patient's hospital transfer has been approved & coordinated with [facility] under the care of Dr. Mcclendon, but no bed available at this time. Will follow up in AM.
--- NOTE | 2018-06-10 00:27 | NUR ---
PATIENT CLEANED AND KEPT DRY
[2018-06-10] MEDS: POTASSIUM CHLORIDE 40 MEQ in IV D5/ 0.9% NACL 1,000 ML IV PRN (02:02)
[2018-06-10 05:38] VITALS: BP 104/55
[2018-06-10] MEDS: BETHANECHOL CHLORIDE 25 MG TABLET PO SCH ×2 (08:42→13:01)
[2018-06-10] MEDS: risperiDONE 2 MG TABLET PO SCH (08:43)
[2018-06-10] MEDS: TAMSULOSIN HCL 0.4 MG CAP.SR.24H PO SCH (08:43)
[2018-06-10] MEDS: FOLIC ACID 1 MG TABLET PO SCH (08:43)
[2018-06-10] MEDS: ASPIRIN EC 81 MG TABLET.DR PO SCH (08:43)
[2018-06-10] MEDS: DIVALPROEX SPRINKLE 125 MG CAP.SPRINK PO SCH (08:43)
[2018-06-10] MEDS: MEMANTINE HCL 5 MG TABLET PO SCH (08:43)
--- NOTE | 2018-06-10 08:45 | NUR ---
DISCHARGE PLANNING TO A HIGHER LEVEL OF CARE DUE TO THE ABCCESS IN HIS KUMBER SPINE PATIENT AWARE AND IS AGREEING WILL HAVE HIM TO SIGN THE PATIENT AWAITING FOR ORDERS FROM THE MEDICAL PROVIDER
--- NOTE | 2018-06-10 10:06 | NUR ---
PHARMACY CLINICAL NOTES ( VANCOMYCIN DOSING) S: To continue vancomycin for this 62 yo male patient for sepsis O: BUN/SCR 10/0.8 (06/18); WBC 9.9 (06/08), TEMP 98.4 Vanco trough level: 18.3 (on 06/10 at 0930) wt 72.6 kg ht 170 cm A/P: Since vanco trough is within therapeutic range, will continue same dose of Vancomycin 1250 mg IVPB q13h for today. Will monitor renal function & adjust the dose if needed Will continue to follow
[2018-06-10] MEDS: VANCOMYCIN IV 1,250 MG in IV DEXTROSE 5% 500 ML IV SCH (10:56)
[2018-06-10 11:11] VITALS: BP 108/62
--- NOTE | 2018-06-10 12:00 | NUR ---
DR OLVERA HERE SPOKE WITH HIM RE DISCHARGE SUMMARY NOT COMPLETE AND CONTINUING MEDICATIONS NOT ON THE DISCHARGE PAGE STATED EVERYTHING WAS ALREADY DONE YESTERDAY.
--- NOTE | 2018-06-10 14:00 | NUR ---
[facility] SPOKE WITH SAHIL AND REPORT GIVEN TO THEM FOR CONTINUING CARE.
--- NOTE | 2018-06-10 14:22 | NUR ---
PATIENT DISCHARGED PICKED UP BY [facility] TO [facility] ORDERED IN SATISFACTORY CONDITION WITH ALL OF HIS PERSONAL BELONGINGS.
[2018-06-10] MEDS ORDERED: GADODIAMIDE 2.5 MMOL/5 ML VIAL MC ONE (16:44)
[2018-06-10] MEDS ORDERED: METFORMIN HCL 500 MG TABLET PO SCH (18:00)
== END 2018-06-10 14:22 | disposition short-term general hospital (02) | DRG 720 ==
LOC: ER 19:32 → TELE 22:39 → MED 06-07 12:09
PROVIDERS: ADMIT Internal Medicine; ATTEND Internal Medicine Nephrology
DX: A41.59 Other Gram-negative sepsis (principal); R65.21 Severe sepsis with septic shock; G06.1 Intraspinal abscess and granuloma; E87.2 Acidosis; M60.08 Infective myositis, other site; M48.02 Spinal stenosis, cervical region; M46.26 Osteomyelitis of vertebra, lumbar region; N30.90 Cystitis, unspecified without hematuria; F03.90 Unspecified dementia, unspecified severity, without behavioral disturbance, psychotic disturbance, mood disturbance, and anxiety; M46.46 Discitis, unspecified, lumbar region; E86.9 Volume depletion, unspecified; Q71.21 Congenital absence of both forearm and hand, right upper limb; Z79.82 Long term (current) use of aspirin; Z79.84 Long term (current) use of oral hypoglycemic drugs; Z79.899 Other long term (current) drug therapy; F31.9 Bipolar disorder, unspecified; E78.5 Hyperlipidemia, unspecified; G89.29 Other chronic pain; N40.0 Benign prostatic hyperplasia without lower urinary tract symptoms; Z86.73 Personal history of transient ischemic attack (TIA), and cerebral infarction without residual deficits; Z87.440 Personal history of urinary (tract) infections; M51.26 Other intervertebral disc displacement, lumbar region; K57.90 Diverticulosis of intestine, part unspecified, without perforation or abscess without bleeding; M48.061 Spinal stenosis, lumbar region without neurogenic claudication; M25.78 Osteophyte, vertebrae; E74.39 Other disorders of intestinal carbohydrate absorption
CPT/HCPCS: 36415; 70030-TC; 71045; 72158; 83605; 83690; 83735; 84100; 85025; 85730; 87040; 87077; 87086; 93005; 97116; 97530; A4663; A9579; C1758; G0378; J0696; J1885; J1956; J2543; J2765; J3370; J3475; J3480; J3490; J7030; J7042; J7060